=== PATIENT | male | born 1950 | race Two or more races ===

== ENCOUNTER 2024-10-21 10:29 | Emergency (ER) | payer OTHER ==
[~2024-10-21] VITALS: Ht 165.1 cm; Wt 71.9 kg
--- NOTE | 2024-10-21 10:53 | ED.PDOC ---
History of present illness HPI Comments 74 y/o M, with PMHX of HTN, DM, HLD, and HI presents to the ED for CC hyperglycemia. Patient states, that he was at [facility] for a routine follow up appointment when he was relayed to the ED due to an elevated blood sugar reading at 514. Patient's blood sugar on glucometer in triage read at 355. Patient denies any fatigue, weakness, numbness, or N/V/D. No other symptoms or modifying factors at this time. Chief Complaint: Hyperglycemia Time Seen by MD: 10:40 History of present illness: Nurses Notes, Medications, Allergies Allergies: Coded Allergies: NO KNOWN ALLERGIES (Unverified , 10/21/24) Information Source: Patient, Significant Other Mode of Arrival: Ambulatory Timing: Minutes Duration: Since onset Prehospital treatment: Accucheck [place]: None History of: Diabetes, Insulin use Associated signs and symptoms: None Past Medical History PAST MEDICAL HISTORY: DM, High Lipids, HTN, HI Surgical History: Appendectomy, PTCA Family History Family History: Unknown Social History Smoker: Non-Smoker Alcohol: Denies ETOH Use Drugs: Denies Drug Use Lives In: Home Constitutional: denies: chills, diaphoresis, fatigue, fever, malaise, sweats, weakness, others EENTM: denies: blurred vision, double vision, ear bleeding, ear discharge, ear drainage, ear pain, ear ringing, eye pain, eye redness, hearing loss, mouth pain, mouth swelling, nasal discharge, nose bleeding, nose congestion, nose pain, photophobia, tearing, throat pain, throat swelling, voice changes, others Respiratory: denies: cough, hemoptysis, orthopnea, SOB at rest, shortness of breath, SOB with excertion, stridor, wheezing, others Cardiovascular: denies: chest pain, dizzy spells, diaphoresis, Dyspnea on exertion, edema, irregular heart beat, left arm pain, lightheadedness, palpitations, PND, syncope, others Gastrointestinal: denies: abdomen distended, abdominal pain, blood streaked bowels, constipated, diarrhea, dysphagia, difficulty swallowing, hematemesis, melena, nausea, poor appetite, poor fluid intake, rectal bleeding, rectal pain, vomiting, others Genitourinary: denies: burning, dysuria, flank pain, frequency, hematuria, incontinence, penile discharge, penile sore, pain, testicle pain, testicle swelling, urgency, others Neurological: denies: dizziness, fainting, headache, left sided numbness, left sided weakness, numbness, paresthesia, pre-existing deficit, right sided numbness, right sided weakness, seizure, speech problems, tingling, tremors, weakness, others Musculoskeletal: denies: back pain, gout, joint pain, joint swelling, muscle pain, muscle stiffness, neck pain, others Integumetry: denies: bruises, change in color, change in hair/nails, dryness, laceration, lesions, lumps, rash, wounds, others Allergic/Immunocompromised: denies: Difficulty Healing, Frequent Infections, Hives, Itching, others Hematologic/Lymphatic: denies: anemia, blood clots, easy bleeding, easy bruising, swollen glands, others Endocrine: denies: excessive hunger, excessive sweating, excessive thirst, excessive urination, flushing, intolerance to cold, intolerance to heat, unexplained weight gain, unexplained weight loss, others Psychiatric: denies: anxiety, bipolar disorder, depression, hopeless, panic disorder, schizophrenia, sleepless, suicidal, others All Other Systems: Reviewed and Negative Physical Exam General Appearance: No Apparent Distress HEENT: Normal ENT Inspection, Pharynx Normal, TMs Normal Neck: Full Range of Motion, Non-Tender, Normal, Normal Inspection Respiratory: Chest Non-Tender, Lungs Clear, No Accessory Muscle Use, No Respiratory Distress, Normal Breath Sounds Cardiovascular: No Edema, No JVD, No Murmur, No Gallop, Normal Peripheral Pulses, Regular Rate/Rhythm Breast Exam: Deferred Gastrointestinal: No Organomegaly, Non Tender, No Pulsatile Mass, Normal Bowel Sounds, Soft Genitalia: Deferred Pelvic: Deferred Rectal: Deferred Extremities: No calf tenderness, Normal capillary refill, Normal inspection, Normal range of motion, Non-tender, No pedal edema Musculoskeletal : Apperance: Normal Neurologic: Alert, claims analyst II-XII nml as Tested, No Motor Deficits, Normal Affect, Normal Mood, No Sensory Deficits Cerebellar Function: Normal Reflexes: Normal Skin: Dry, Rash, Warm Lymphatic: No Adenopathy Was a procedure done? Was a procedure done?: No Differential Diagnosis (DM) Differential Diagnosis: Hyperglycemia X-Ray, Labs, Meds, VS Vital Signs Date Time Temp Pulse Resp B/P (MAP) Pulse Ox O2 Delivery O2 Flow Rate FiO2 10/21/24 10:35 98.3 102 16 154/48 (83) 100 Lab Test 10/21/24 10:54 10/21/24 10:51 10/21/24 10:39 Range/Units POC Glucose 355 H 355 H 70-106 mg/dl White Blood Count 11.2 H 4.4-10.8 10^3/uL Red Blood Count 4.33 L 4.5-5.90 10^6/uL Hemoglobin 12.5 L 13.5-17.5 g/dL Hematocrit 38.0 L 41.0-53.0 % Mean Corpuscular Volume 87.7 80.0-100.0 fL Mean Corpuscular Hemoglobin 28.8 28.0-32.0 pg Mean Corpuscular Hemoglobin Concent 32.8 32.0-36.0 g/dL Red Cell Distribution Width 15.7 H 11.8-14.3 % Platelet Count 300 140-450 10^3/uL Mean Platelet Volume 6.8 L 6.9-10.8 fL Neutrophils (%) (Auto) 64.4 37.0-80.0 % Lymphocytes (%) (Auto) 19.3 10.0-50.0 % Monocytes (%) (Auto) 5.6 0.0-12.0 % Eosinophils (%) (Auto) 9.8 H 0.0-7.0 % Basophils (%) (Auto) 0.9 0.0-2.0 % Neutrophils # (Auto) 7.2 1.6-8.6 10 ^3/uL Lymphocytes # (Auto) 2.2 0.4-5.4 10 ^3/uL Monocytes # (Auto) 0.6 0-1.3 10 ^3/uL Eosinophils # (Auto) 1.1 H 0-0.8 10 ^3/uL Basophils # (Auto) 0.1 0-0.2 10 ^3/uL Nucleated Red Blood Cells 0.0 % Sodium Level 137 136-145 mmol/L Potassium Level 4.5 3.5-5.1 mmol/L Chloride Level 102 98-107 mmol/L Carbon Dioxide Level 29 20-31 mmol/L Anion Gap 6 5-15 Blood Urea Nitrogen 20 9-23 mg/dL Creatinine 0.82 0.700-1.30 mg/dL Glomerular Filtration Rate Calc 93 >90 mL/min BUN/Creatinine Ratio 24.4 H 10.0-20.0 Serum Glucose 376 H 74-106 mg/dL Calcium Level 9.6 8.7-10.4 mg/dL Current Medications Medications (Trade) Dose Ordered Sig/Dominique Route Start Time Stop Time Status Last Admin Insulin Human Regular (InsuLIN R) 10 units ONCE ONCE SC 10/21/24 10:45 10/21/24 10:46 DC 10/21/24 11:00 The patient's CBC shows a slightly elevated white bolused cell count of 11.2 The rest of the CBC is within normal limits The chemistry panel shows a serum of 376 The patient was given insulin at 10 units subQ The patient was being discharged The patient was to follow up with [facility] The patient will return to the emergency department's the condition worsens. Time of 1ST Reevaluation: 11:20 Reevaluation 1ST: Unchanged Patient Education/Counseling: Diagnosis, Treatment, Prognosis, Need For Follow Up Family Education/Counseling: Diagnosis, Treatment, Prognosis, Need For Follow Up Additional Information - I reviewed the following notes from patient's past medical encounters: NONE - The following tests were ordered, and results were reviewed by me: CBC, BMP - Additional information was gathered from interviewing the following independent Historian: FAMILY - I discussed treatments and results with medical personnel and: FAMILY Departure 1 Departure Time of Disposition: 12:04 Impression: Primary Impression: Hyperglycemia Disposition: 01 HOME / SELF CARE / HOMELESS Condition: Fair Discharged With: Self, Spouse Critical Care Note Critical Care Time?: No Stability Stability form required: No Heart Score Heart Score: Heart Score Response (Comments) Value History N/A 0 EKG N/A 0 Age N/A 0 Risk Factors N/A 0 Troponin N/A 0 Total 0 I personally scribed for LEONARDO YANG MD ([email or web address]) on 10/21/24 at 10:52. Electronically submitted by Ana Jacobsen ([email or web address]). I personally scribed for LEONARDO YANG MD ([email or web address]) on 10/21/24 at 11:08. Electronically submitted by Ana Jacobsen ([email or web address]). LEONARDO YANG MD Oct 21, 2024 10:52
[2024-10-21] MEDS: InsuLIN REG 1unit/0.01ml Soln (100units/ml) SC ONE (11:00)
[2024-10-21 11:13] LABS: Basophils # (auto) 0.1 10 ^3/uL (0-0.2); Basophils % (auto) 0.9 % (0.0-2.0); Eosinophils # (auto) 1.1 10 ^3/uL (0-0.8); Eosinophils % (auto) 9.8 % (0.0-7.0); Hemoglobin 12.5 g/dL (13.5-17.5); Lymphocytes # (auto) 2.2 10 ^3/uL (0.4-5.4); Lymphocytes % (auto) 19.3 % (10.0-50.0); Mean Corpuscular Hemoglobin 28.8 pg (28.0-32.0); Mean Corpuscular Hgb Conc. 32.8 g/dL (32.0-36.0); Mean Corpuscular Volume 87.7 fL (80.0-100.0); Monocytes # (auto) 0.6 10 ^3/uL (0-1.3); Monocytes % (auto) 5.6 % (0.0-12.0); Neutrophils # (auto) 7.2 10 ^3/uL (1.6-8.6); Neutrophils % (auto) 64.4 % (37.0-80.0); Platelet Count (auto) 300 10^3/uL (140-450); Red Blood Cells 4.33 10^6/uL (4.5-5.90); Red Cell Distribution Width 15.7 % (11.8-14.3); White Blood Cell 11.2 10^3/uL (4.4-10.8)
[2024-10-21 11:28] LABS: Chloride 102 mmol/L (98-107); Potassium 4.5 mmol/L (3.5-5.1); Sodium 137 mmol/L (136-145)
[2024-10-21 11:29] LABS: Anion Gap 6 (5-15); Calcium 9.6 mg/dL (8.7-10.4); Carbon Dioxide 29 mmol/L (20-31)
[2024-10-21 11:34] LABS: BUN/Creatinine Ratio 24.4 (10.0-20.0); Blood Urea Nitrogen 20 mg/dL (9-23)
[2024-10-21 11:46] LABS: Glucose 376 mg/dL (74-106)
[2024-10-21 12:20] VITALS: BP 158/65; PULSE 91; RESP 17; TEMP 98.5; O2SAT 100
== END 2024-10-21 12:22 | disposition home or self-care (01) ==
LOC: ER 10:29
DX: E11.65 Type 2 diabetes mellitus with hyperglycemia (principal); E78.5 Hyperlipidemia, unspecified; I10 Essential (primary) hypertension; I25.2 Old myocardial infarction; Z90.49 Acquired absence of other specified parts of digestive tract
CPT/HCPCS: 36415; 80048; 82947; 85025; 99283; J1815; 82962

== ENCOUNTER 2024-12-31 22:29 | Inpatient (IN) | payer OTHER ==
[~2024-12-31] VITALS: Ht 167.6 cm; Wt 74.0 kg
--- NOTE | 2024-12-31 23:35 | ED.PDOC ---
History of Present Illness HPI Comments 74-year-old male who came to ER via EMS for shortness of breath. Per EMS, patient does have history of hypertension and diabetes, has history of pemphigus follaceus. Patient usually bed/recliner-bound. Has been feeling short of breath the past few days, that worsens significantly whenever patient attempts to walk. Patient is saturating 92% on room air on scene Chief Complaint: Shortness of Breath Time Seen by MD: 23:34 Primary Care Provider: TESSIE: DR ALVARADO Reviewed Notes: Buncher Operator Notes Allergies: Coded Allergies: Lisinopril (Verified Allergy, Unknown, 12/31/24) Metformin (Verified Allergy, Unknown, 12/31/24) Information Source: Emergency Med Personnel Mode of Arrival: EMS Severity: Moderate Timing: Days Duration: Intermittent Past Medical History PAST MEDICAL HISTORY: DM, High Lipids, HTN, Kidney Stones, [place] Past Medical History (Other): Pemphigus follaceus Surgical History: Appendectomy, PTCA Family History Family History: Unknown Social History Smoker: Non-Smoker Alcohol: Denies ETOH Use Drugs: Denies Drug Use Lives In: Home Constitutional: denies: chills, diaphoresis, fatigue, fever, malaise, sweats, weakness, others EENTM: denies: blurred vision, double vision, ear bleeding, ear discharge, ear drainage, ear pain, ear ringing, eye pain, eye redness, hearing loss, mouth pain, mouth swelling, nasal discharge, nose bleeding, nose congestion, nose pain, photophobia, tearing, throat pain, throat swelling, voice changes, others Respiratory: reports: shortness of breath, SOB with excertion; denies: cough, hemoptysis, orthopnea, SOB at rest, stridor, wheezing, others Physical Exam General Appearance: No Apparent Distress, Normal HEENT: Normal ENT Inspection, Pharynx Normal, TMs Normal Neck: Full Range of Motion, Non-Tender, Normal, Normal Inspection Respiratory: Chest Non-Tender, Lungs Clear, No Accessory Muscle Use, No Respiratory Distress, Normal Breath Sounds Cardiovascular: No Edema, No JVD, No Murmur, No Gallop, Normal Peripheral Pulses, Regular Rate/Rhythm Breast Exam: Deferred Gastrointestinal: No Organomegaly, Non Tender, No Pulsatile Mass, Normal Bowel Sounds, Soft Genitalia: Deferred Pelvic: Deferred Rectal: Deferred Extremities: No calf tenderness, Normal capillary refill, Normal inspection, Normal range of motion, Non-tender, No pedal edema Musculoskeletal : Apperance: Normal Neurologic: Alert, plastic finisher II-XII nml as Tested, No Motor Deficits, Normal Affect, Normal Mood, No Sensory Deficits Cerebellar Function: Normal Reflexes: Normal Skin: Dry, Normal Color, Warm Lymphatic: No Adenopathy Was a procedure done? Was a procedure done?: No Differential Dx Considerations may include: Anemia, electrolyte imbalance, pneumonia, urinary tract infection, hypoxia X-Ray, Labs, Meds, VS Vital Signs Date Time Temp Pulse Resp B/P (MAP) Pulse Ox O2 Delivery O2 Flow Rate FiO2 01/01/25 01:36 118 18 112/61 01/01/25 01:00 98.3 123 19 107/56 (73) 98.3 12/31/24 23:45 Room Air* 0 21 12/31/24 22:56 98.0 93 16 113/70 (84) 92 98.0 Lab Test 01/01/25 01:26 01/01/25 01:22 01/01/25 00:13 Range/Units Lactic Acid Level Pending 9.8 *H 0.4-2.0 mmol/L Troponin I High Sensitivity Pending 26 </=54 ng/L POC Glucose 157 H 70-106 mg/dl White Blood Count 18.3 H 4.4-10.8 10^3/uL Red Blood Count 4.18 L 4.5-5.90 10^6/uL Hemoglobin 11.4 L 13.5-17.5 g/dL Hematocrit 35.7 L 41.0-53.0 % Mean Corpuscular Volume 85.4 80.0-100.0 fL Mean Corpuscular Hemoglobin 27.3 L 28.0-32.0 pg Mean Corpuscular Hemoglobin Concent 32.0 32.0-36.0 g/dL Red Cell Distribution Width 21.5 H 11.8-14.3 % Platelet Count 327 140-450 10^3/uL Mean Platelet Volume 6.8 L 6.9-10.8 fL Neutrophils (%) (Auto) 88.0 H 37.0-80.0 % Lymphocytes (%) (Auto) 6.7 L 10.0-50.0 % Monocytes (%) (Auto) 4.7 0.0-12.0 % Eosinophils (%) (Auto) 0.1 0.0-7.0 % Basophils (%) (Auto) 0.5 0.0-2.0 % Neutrophils # (Auto) 16.1 H 1.6-8.6 10 ^3/uL Lymphocytes # (Auto) 1.2 0.4-5.4 10 ^3/uL Monocytes # (Auto) 0.9 0-1.3 10 ^3/uL Eosinophils # (Auto) 0 0-0.8 10 ^3/uL Basophils # (Auto) 0.1 0-0.2 10 ^3/uL Nucleated Red Blood Cells 0.3 % Sodium Level 142 136-145 mmol/L Potassium Level 4.4 3.5-5.1 mmol/L Chloride Level 111 H 98-107 mmol/L Carbon Dioxide Level 13 L 20-31 mmol/L Anion Gap 18 H 5-15 Blood Urea Nitrogen 23 9-23 mg/dL Creatinine 1.13 0.700-1.30 mg/dL Glomerular Filtration Rate Calc 69 >90 mL/min BUN/Creatinine Ratio 20.4 H 10.0-20.0 Serum Glucose 184 H 74-106 mg/dL Calcium Level 7.4 L 8.7-10.4 mg/dL Total Bilirubin 1.1 H 0.2-1.0 mg/dL Aspartate Amino Transferase (AST) 27 13-40 U/L Alanine Aminotransferase (ALT) 20 7-40 U/L Alkaline Phosphatase 109 46-116 U/L Total Protein 4.5 L 5.7-8.2 g/dL Albumin 2.0 L 3.2-4.8 g/dL Current Medications Medications (Trade) Dose Ordered Sig/Dominique Route Start Time Stop Time Status Last Admin Sodium Chloride 1,000 ml @ 1,000 mls/hr Q1H ONCE IV 01/01/25 01:00 01/01/25 01:59 01/01/25 01:25 Lidocaine HCl (Xylocaine 2% Viscous) 10 ml ONCE ONCE MT 01/01/25 01:00 01/01/25 01:01 DC 01/01/25 01:04 Morphine Sulfate 4 mg ONCE ONCE IV 01/01/25 01:30 01/01/25 01:31 DC 01/01/25 01:36 Ondansetron HCl (Zofran) 4 mg ONCE ONCE IV 01/01/25 01:30 01/01/25 01:31 DC 01/01/25 01:35 CHEST RADIOGRAPH Indication: SOB Technique: Single frontal view of the chest was obtained Comparison: None Findings/ IMPRESSION: Trace left-sided pleural effusion and/or atelectasis. No focal consolidation or pneumothorax. Time of 1ST Reevaluation: 23:20 Reevaluation 1ST: Unchanged Patient Education/Counseling: Diagnosis, Treatment Family Education/Counseling: No Family Present Sepsis Sepsis Reasesment Focused Exam Sepsis focused exam: focus exam completed (In the initial resuscitation at least 30 mL/kg of IV crystalloid fluid was NOT given within the first 3 hr due to concerns of fluid overload), time: (0130) Departure 1 Departure Time of Disposition: 01:47 Impression: Primary Impression: Pemphigus foliaceous Additional Impressions: Dehydration Cellulitis Disposition: [address] [place] [address] Condition: Guarded Discharged With: Self Comments 74-year-old Male with Pemphigus Exacerbation and Weakness Chief Complaint: Generalized weakness, palpitations, and confusion History of Present Illness: 74-year-old male with known history of pemphigus presented via ambulance from home with complaints of generalized weakness, palpitations, and confusion. Family members accompanied the patient and provided history. The patient has been experiencing active pemphigus symptoms with skin sloughing and weeping lesions, suggesting disease exacerbation. These symptoms have likely contributed to fluid losses and current clinical presentation. Review of Systems: Constitutional: Generalized weakness, confusion Cardiovascular: Palpitations Skin: Active pemphigus lesions with sloughing and weeping Other systems: Unable to assess due to patient's condition Physical Exam: General: Patient appears mildly poorly perfused Cardiovascular: Borderline tachycardia Skin: Multiple areas of skin showing active pemphigus lesions with superficial sloughing and weeping Lab Results: Lactic acid: 9.8 (Elevated) WBC: 18, 000 (Elevated) BMI: 23 INR: 1.13 (Normal) Imaging and Other Relevant Results: No imaging studies documented Medical Decision Making: Summary Statement: 74-year-old male with known pemphigus presenting with signs of systemic illness including confusion, weakness, and elevated inflammatory markers, complicated by likely superimposed cellulitis and dehydration. Problem List: 1. Pemphigus exacerbation 2. Suspected cellulitis 3. Dehydration 4. Elevated lactic acid 5. Leukocytosis Differential Diagnosis: 1. Sepsis secondary to skin infection 2. Severe dehydration from fluid losses 3. Pemphigus flare 4. Medication-related adverse effects 5. Other systemic infection ED Course: Patient received IV fluid resuscitation and was started on IV vancomycin for possible cellulitis. Close monitoring of vital signs and clinical status was maintained throughout ED stay. Assessment and Plan: 1. Pemphigus with acute exacerbation: - Admit to hospital for close monitoring and management - Continue current pemphigus medications - Dermatology consultation 2. Suspected Cellulitis: - Continue IV vancomycin - Monitor inflammatory markers - Daily skin examination 3. Dehydration with elevated lactic acid: - Aggressive IV fluid resuscitation - Serial lactic acid monitoring - Strict I/O monitoring Disposition: Admit to medical floor for continued care and monitoring Billing Information: ICD-10: L10.9 - Pemphigus, unspecified ICD-10: L03.90 - Cellulitis, unspecified ICD-10: E86.0 - Dehydration ICD-10: R55 - Syncope and collapse Critical Care Note Critical Care Time?: Yes (35 min-critical care time only) Critical care comment: Total critical care time: Approximately 36 minutes Due to a high probability of clinically significant, life threatening deterioration, the patient required my highest level of preparedness to intervene emergently and I personally spent this critical care time directly and personally managing the patient. This critical care time included obtaining a history; examining the patient; pulse oximetry; ordering and review of studies; arranging urgent treatment with development of a management plan; evaluation of patient's response to treatment; frequent reassessment; and, discussions with other providers. This critical care time was performed to assess and manage the high probability of imminent, life-threatening deterioration that could result in multi-organ failure. It was exclusive of separately billable procedures and treating other patients. Stability Stability form required: No Heart Score Heart Score: Heart Score Response (Comments) Value History N/A 0 EKG N/A 0 Age N/A 0 Risk Factors N/A 0 Troponin N/A 0 Total 0 I personally scribed for KOMAL AVILEZ MD ([email or web address]) on 12/31/24 at 23:35. Electronically submitted by Tristan Rosas ([email or web address]). I personally scribed for KOMAL AVILEZ MD ([email or web address]) on 01/01/25 at 00:20. Electronically submitted by Tristan Rosas ([email or web address]). KOMAL AVILEZ MD Dec 31, 2024 23:35
--- NOTE | 2025-01-01 00:03 | DVH ---
CHEST RADIOGRAPH Indication: SOB Technique: Single frontal view of the chest was obtained Comparison: None Findings/ IMPRESSION: Trace left-sided pleural effusion and/or atelectasis. No focal consolidation or pneumothorax.
[2025-01-01 00:40] LABS: Basophils # (auto) 0.1 10 ^3/uL (0-0.2); Basophils % (auto) 0.5 % (0.0-2.0); Eosinophils # (auto) 0 10 ^3/uL (0-0.8); Eosinophils % (auto) 0.1 % (0.0-7.0); Hematocrit 35.7 % (41.0-53.0); Hemoglobin 11.4 g/dL (13.5-17.5); Lymphocytes # (auto) 1.2 10 ^3/uL (0.4-5.4); Lymphocytes % (auto) 6.7 % (10.0-50.0); Mean Corpuscular Hemoglobin 27.3 pg (28.0-32.0); Mean Corpuscular Volume 85.4 fL (80.0-100.0); Monocytes # (auto) 0.9 10 ^3/uL (0-1.3); Monocytes % (auto) 4.7 % (0.0-12.0); Neutrophils # (auto) 16.1 10 ^3/uL (1.6-8.6); Nucleated Red Blood Cells % 0.3 %; Platelet Count (auto) 327 10^3/uL (140-450); Red Blood Cells 4.18 10^6/uL (4.5-5.90); Red Cell Distribution Width 21.5 % (11.8-14.3); White Blood Cell 18.3 10^3/uL (4.4-10.8)
[2025-01-01 00:52] LABS: Alanine Aminotransferase 20 U/L (7-40); Alkaline Phosphatase 109 U/L (46-116); Anion Gap 18 (5-15); Aspartate Aminotransferase 27 U/L (13-40); BUN/Creatinine Ratio 20.4 (10.0-20.0); Bilirubin, Total 1.1 mg/dL (0.2-1.0); Potassium 4.4 mmol/L (3.5-5.1); Sodium 142 mmol/L (136-145)
[2025-01-01 00:53] LABS: Blood Urea Nitrogen 23 mg/dL (9-23); Calcium 7.4 mg/dL (8.7-10.4); Carbon Dioxide 13 mmol/L (20-31); Chloride 111 mmol/L (98-107); Glucose 184 mg/dL (74-106); Total Protein 4.5 g/dL (5.7-8.2)
[2025-01-01] MEDS: LIDOCAINE VISCOUS 2% 15ML UD MT ONE (01:04)
[2025-01-01] MEDS: SODIUM CHLORIDE 0.9% 1,000 ML IV ONE ×2 (01:25→02:48)
[2025-01-01 01:33] LABS: Lactic Acid w/Reflex 9.8 mmol/L (0.4-2.0)
[2025-01-01] MEDS: ONDANSETRON HCL 4 MG/2 ML VIAL IV ONE (01:35)
[2025-01-01] MEDS: MORPHINE SULFATE 4 MG/ML SYR/VIAL IV ONE (01:36)
[2025-01-01] MEDS: SODIUM CHLORIDE 0.9% 2,050 ML IV ONE (01:49)
[2025-01-01] MEDS: PIPERACILLIN-TAZOB 3.375GM 100 ML IV ONE (01:57)
[2025-01-01] MEDS: VANCOMYCIN 1GM/200ML PM 200 ML IV ONE (03:08)
[2025-01-01 03:15] LABS: COVID19 ANTIGEN SOFIA FIA NEGATIVE (NEGATIVE); Rapid Influenza A Negative (Negative); Rapid Influenza B Negative (Negative)
[2025-01-01] MEDS ORDERED: DOCUSATE SOD 100 MG CAP PO PRN (03:30)
[2025-01-01] MEDS ORDERED: ACETAMINOPHEN 325 MG TAB PO PRN (03:30)
[2025-01-01] MEDS ORDERED: ONDANSETRON HCL 4 MG/2 ML VIAL IV PRN (03:30)
--- NOTE | 2025-01-01 03:36 | DVHHPRES ---
History of Present Illness Resident Creating Document: LIZ ALEX History of Present Illness Giorgi Allred is a 74-year-old male patient who presents to the ED brought by EMS due to altered mental status which started last Friday (12/26/2024) and sudden onset of dyspnea in functional class IV which started the day of his admission (01/01/2025). Due to clinical status, could not obtain review of systems per history from patient. Obtain relevant information from EMR and who is at bedside. 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 Denies any other associated symptoms. 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 Surgical history: Appendicectomy. PCI status post stent placement over 10 years ago Family history: Denies Social history: Lives in [place] with (she is the next of kin). Denies current tobacco, alcohol and other drug abuse Allergies: Lisinopril, metformin and Jardiance Home medication: Per EMS he is only on Pradaxa, Lipitor, famotidine and metoprolol. Per external med rec he is also on tacrolimus, mycophenolate, ezetimibe, prednisone. It is unclear if he is taking this medication. Patient seen and examined at bedside. Currently only oriented for self (does not know event, location and timeframe). 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 Have explained importance of monitoring vital signs. Past Medical History Per HPI Past Surgical History Per HPI Family History Per HPI Past Social History Per HPI Review of Systems Review of Systems Per HPI Allergies: Coded Allergies: Lisinopril (Verified Allergy, Unknown, 12/31/24) Metformin (Verified Allergy, Unknown, 12/31/24) Medications Current Medications Medications Dose Ordered Sig/Dominique Route Start Time Stop Time Status Last Admin Dose Admin Docusate Sodium 100 mg BIDPRN PRN PO 01/01/25 03:30 UNV Acetaminophen 650 mg Q6HP PRN PO 01/01/25 03:30 UNV Ondansetron HCl 4 mg Q4HP PRN IV 01/01/25 03:30 UNV Morphine Sulfate 2 mg Q4HPRN PRN IV 01/01/25 03:30 UNV Enoxaparin Sodium 40 mg DAILY SC 01/01/25 10:00 UNV Exam Vital Signs Vital Signs Date Time Temp Pulse Resp B/P (MAP) Pulse Ox O2 Delivery O2 Flow Rate FiO2 01/01/25 01:36 118 18 112/61 01/01/25 01:00 98.3 98.3 12/31/24 23:45 Room Air* 0 21 12/31/24 22:56 92 Exam Patient lying in bed, in no acute distress General: [place], afebrile, mucosae are dry Cardiovascular: Normal S1 and S2, tachycardic. No murmurs, gallops or rubs Respiratory: Normal ventilation mechanics. Clear lung sounds on auscultation Abdomen: Soft, nontender, no organomegaly, normal bowel sounds MSK/skin: Mobilizes 4 limbs. Generalized blisters, erosions and crust throughout body, purulent secretion and erythema underneath crust. Lower limb extremities presents crusty lesions with no obvious drainage. Neurological: Oriented in 1 spheres (only person). No motor no sensitive deficits. Pupils are isocoric and reactive Labs/Xrays Labs Test 01/01/25 01:50 01/01/25 01:26 01/01/25 01:22 01/01/25 00:13 Range/Units Influenza Type A Antigen Negative Negative Influenza Type B Antigen Negative Negative SARS-CoV-2 Antigen (Rapid) Negative NEGATIVE Lactic Acid Level 9.6 *H 0.4-2.0 mmol/L Troponin I High Sensitivity 26 </=54 ng/L POC Glucose 157 H 70-106 mg/dl White Blood Count 18.3 H 4.4-10.8 10^3/uL Red Blood Count 4.18 L 4.5-5.90 10^6/uL Hemoglobin 11.4 L 13.5-17.5 g/dL Hematocrit 35.7 L 41.0-53.0 % Mean Corpuscular Volume 85.4 80.0-100.0 fL Mean Corpuscular Hemoglobin 27.3 L 28.0-32.0 pg Mean Corpuscular Hemoglobin Concent 32.0 32.0-36.0 g/dL Red Cell Distribution Width 21.5 H 11.8-14.3 % Platelet Count 327 140-450 10^3/uL Mean Platelet Volume 6.8 L 6.9-10.8 fL Neutrophils (%) (Auto) 88.0 H 37.0-80.0 % Lymphocytes (%) (Auto) 6.7 L 10.0-50.0 % Monocytes (%) (Auto) 4.7 0.0-12.0 % Eosinophils (%) (Auto) 0.1 0.0-7.0 % Basophils (%) (Auto) 0.5 0.0-2.0 % Neutrophils # (Auto) 16.1 H 1.6-8.6 10 ^3/uL Lymphocytes # (Auto) 1.2 0.4-5.4 10 ^3/uL Monocytes # (Auto) 0.9 0-1.3 10 ^3/uL Eosinophils # (Auto) 0 0-0.8 10 ^3/uL Basophils # (Auto) 0.1 0-0.2 10 ^3/uL Nucleated Red Blood Cells 0.3 % Sodium Level 142 136-145 mmol/L Potassium Level 4.4 3.5-5.1 mmol/L Chloride Level 111 H 98-107 mmol/L Carbon Dioxide Level 13 L 20-31 mmol/L Anion Gap 18 H 5-15 Blood Urea Nitrogen 23 9-23 mg/dL Creatinine 1.13 0.700-1.30 mg/dL Glomerular Filtration Rate Calc 69 >90 mL/min BUN/Creatinine Ratio 20.4 H 10.0-20.0 Serum Glucose 184 H 74-106 mg/dL Calcium Level 7.4 L 8.7-10.4 mg/dL Total Bilirubin 1.1 H 0.2-1.0 mg/dL Aspartate Amino Transferase (AST) 27 13-40 U/L Alanine Aminotransferase (ALT) 20 7-40 U/L Alkaline Phosphatase 109 46-116 U/L Total Protein 4.5 L 5.7-8.2 g/dL Albumin 2.0 L 3.2-4.8 g/dL Assessment/Plan Assessment/Plan Assessment: Metabolic encephalopathy likely secondary to sepsis Sepsis due to exacerbated pemphigus foliaceous Acute respiratory failure secondary to bilateral pleural effusion Rule out CVA Rule out PE Hypertension Dyslipidemia Diabetes Coronary artery disease status post PCI with stent placement Chronic microcytic anemia Pemphigus foliaceous - currently status bed-bound Noncompliance (he is refusing cardiac monitoring and pulse oximetry) Plan: Patient currently septic, ordered 30 milliliters/kg of normal saline, under empiric IV antibiotic (vancomycin and Zosyn), ordered oxygen therapy but patient is refusing at this time and also refusing pulse oximetry. Ordered oliveira cultures (blood, urine, sputum, wound). Influenza and COVID swab negative Ordered head CT and chest CT with contrast to rule out CVA and PE respectively Ordered wound consult It is unclear whether patient is on mycophenolate, tacrolimus and prednisone. We will start present patient on methylprednisolone at this time to avoid suprarenal insufficiency and also to control exacerbation of pemphigus foliaceous Goals of care discussed with patient but he is not oriented, discussed with who was at bedside (Jeane) over 18 minutes: Full code status by Plan discussed with Dr. Duckworth, patient and nurses: Patient currently on IV fluids, empiric IV antibiotic, oxygen therapy. Ordered head CT and chest CT with contrast to rule out CVA and PE respectively. Patient is on IV steroids to avoid suprarenal insufficiency and for exacerbation of pemphigus foliaceous. Patient has poor prognosis Critical care time spent including discussion with nursing and family: 62 minutes Patient is unstable for transfer to [place] Plan discussed with: Patient, Spouse, Other (Nurses) My Orders Orders - LIZ ALEX RESIDENT Procedure Category Date Status Time Admit ADMIT 01/01/25 Transmitted 03:30 Code Status CODE 01/01/25 Transmitted 03:30 Vital Signs [facility] 01/01/25 In Process 03:30 Review Orders With [facility] 01/01/25 In Process Adm. 03:30 Consistent DIET 01/01/25 Transmitted Carb(Ccho)Diabetes Breakfast Docusate Sodium PHA 01/01/25 Logged Capsule (Colace 03:30 Acetaminophen Tablet PHA 01/01/25 Logged (Tylenol Tablet) 03:30 Notify Of Changes [facility] 01/01/25 In Process From Base 03:30 Advance Directive [facility] 01/01/25 In Process 03:30 Echo 2d Mode Cardiac US 01/01/25 Logged DOP 03:30 Patient Condition ORDERS 01/01/25 Transmitted 03:30 Allergies [facility] 01/01/25 In Process 03:30 Ondansetron Hcl PHA 01/01/25 Transmitted (Zofran) 03:30 Morphine Sulfate PHA 01/01/25 Logged Injection 03:30 Enoxaparin Sodium PHA 01/01/25 Logged (Lovenox) 10:00 Oxygen By Nasal RT 01/01/25 Transmitted Cannula 03:30 Stat Ekg For Chest [facility] 01/01/25 In Process Pain 03:30 Notify Of Changes [facility] 01/01/25 In Process From Base 03:30 Informatics Nurse For [facility] 01/01/25 In Process 24 Hours 03:30 Emergency Dysrhythmia [facility] 01/01/25 In Process Protocol 03:30 Rhythm Strips Once [facility] 01/01/25 In Process Every Shift 03:30 Vitamin D, 25-Hydroxy LAB 01/01/25 Logged 03:30 Vitamin B12 LAB 01/01/25 Logged 03:30 Urinalysis LAB 01/01/25 Logged 03:30 Thyroid Stimulating LAB 01/01/25 Logged Hormone 03:30 PTPTT LAB 01/01/25 Logged 03:30 Phosphorus LAB 01/01/25 Logged 03:30 Magnesium LAB 01/01/25 Logged 03:30 Lipid Panel LAB 01/01/25 Logged 03:30 Lactic Acid W/ Reflex LAB 01/01/25 Logged Order 03:30 Hemoglobin A1c LAB 01/01/25 Logged 03:30 Drug Screen LAB 01/01/25 Logged 03:30 Comprehensive LAB 01/01/25 Logged Metabolic Panel 03:30 Complete Blood Count LAB 01/01/25 Logged 03:30 Urine Bacterial ANKIT 01/01/25 Logged Culture 03:30 Respiratory Culture ANKIT 01/01/25 Logged W/ Gs 03:30 Sputum Induction RT 01/01/25 Logged 03:30 Date of Service: Jan 01, 2025 Billing Provider: LIZBETH DUCKWORTH MD Common Visit Codes: [id number] INP/OBS CARE (HIGH) LIZ ALEX RESIDENT Jan 01, 2025 03:36
[2025-01-01] MEDS: IOHEXOL 350 MG/ML 100ML IJ ONE (04:00)
[2025-01-01] MEDS ORDERED: DEXTROSE (50%) 50ML SYRG IV PRN (04:15)
[2025-01-01] MEDS ORDERED: VANCOMYCIN PER PHARMACY 0 MG IV SCH (04:15)
[2025-01-01] MEDS: SODIUM CHLORIDE 0.9% 1,000 ML IV SCH (04:21)
[2025-01-01] MEDS: PANTOPRAZOLE 40 MG/10 ML VIAL INJ IV ONE (04:23)
[2025-01-01 04:32] LABS: INR 1.72 (0.9-1.15); Partial Thromboplastin Time 51.3 SEC (24.5-34.5); Prothrombin Time 17.3 sec (9.3-11.8)
[2025-01-01 04:35] LABS: Alanine Aminotransferase 15 U/L (7-40); Alkaline Phosphatase 85 U/L (46-116); Anion Gap 16 (5-15); BUN/Creatinine Ratio 20.6 (10.0-20.0); Bilirubin, Total 0.9 mg/dL (0.2-1.0); Blood Urea Nitrogen 21 mg/dL (9-23); Cholesterol < 50.0 mg/dL (< 200); LDL Cholesterol 13 mg/dL (< 100); Magnesium 1.8 mg/dL (1.6-2.6); Phosphorus 3.7 mg/dL (2.4-5.1); Potassium 3.9 mmol/L (3.5-5.1); Triglycerides 89 mg/dL (< 150)
[2025-01-01 04:44] LABS: INR 1.49 (0.9-1.15); Partial Thromboplastin Time 42.1 SEC (24.5-34.5); Prothrombin Time 15.2 sec (9.3-11.8)
[2025-01-01 04:55] LABS: Albumin 1.6 g/dL (3.2-4.8); Aspartate Aminotransferase 9 U/L (13-40); Calcium 6.7 mg/dL (8.7-10.4); Carbon Dioxide 16 mmol/L (20-31); Chloride 113 mmol/L (98-107); Glucose 176 mg/dL (74-106); HDL Cholesterol 17 mg/dL (40-59); Sodium 145 mmol/L (136-145); Total Protein 3.5 g/dL (5.7-8.2)
[2025-01-01] MEDS: methylPREDNISolone SOD SUCC 40 MG/ML VL IV ONE (05:06)
[2025-01-01] MEDS: InsuLIN REG 1unit/0.01ml Soln (100units/ml) SC SCH (06:15)
[2025-01-01] MEDS: ACCU-CHEK COMFORT CURVE STRIP VI SCH (06:15)
--- NOTE | 2025-01-01 07:08 | DVH ---
CLINICAL INFORMATION: Pulmonary embolism. No other clinical information provided. TECHNIQUE: Axial CTA images of the chest were obtained after the uneventful administration of 100 mL of Omnipaque 350 IV contrast. Coronal and sagittal reformatted images and MIP images were obtained, reviewed, and stored. One or more of the following dose reduction techniques were used: Automated exp osure control. Adjustment of mA and/or kV according to patient size. CTDIvol = 16, 11.84, 0.07, 0.07 mGy DLP = 638.67 mGy-cm COMPARISON: Chest radiograph dated 12/31/2024. FINDINGS: Pulmonary arteries: Limited evaluation for pulmonary embolism due to respiratory motion artifact subo ptimal contrast opacification of the pulmonary arteries. No evidence of central or lobar pulmonary em bolism. Can not exclude segmental or subsegmental pulmonary emboli Aorta: No aneurysm or dissection. Moderate atherosclerotic calcification Cardiac: Heart size is within normal limits. Marked coronary artery calcification. Mediastinum/lonnie: No mass or adenopathy. Lungs: Small to moderate bilateral pleural effusions with overlying compressive atelectasis. No focal consolidation visualized. Limited evaluation due to respiratory motion artifact. No pneumothorax. Chest wall: Diffuse anasarca. Upper abdomen: Small calcified gallstones in the gallbladder. Moderate fatty changes of the pancreas. Bones: No fracture or suspicious intraosseous lesions. IMPRESSION: 1. Limited evaluation for pulmonary embolism for the reasons described above. No evidence of central or lobar pulmonary embolism. Can not exclude segmental or subsegmental pulmonary emboli. 2. Small to moderate bilateral pleural effusions with overlying compressive atelectasis. 3. Cholelithiasis. 4. Anasarca. 5. Additional findings as described above.
--- NOTE | 2025-01-01 07:34 | DVH ---
CLINICAL INFORMATION: Acute loss of consciousness. TECHNIQUE: Axial imaging was obtained through the brain without contrast. Coronal and sagittal reform atted images were obtained, reviewed, and stored. Images were reviewed in brain and bone windows. Al l CT scans at this medical facility are performed using dose modulation techniques as appropriate to a performed exam including the following: Automated exposure control was utilized; adjustment of the MA and/or KV according to patient size; and use of iterative reconstruction technique. CTDIvol = 59.4 9 mGy DLP = 953.58 mGy-cm COMPARISON: None FINDINGS: There is no acute intracranial hemorrhage. No mass effect or midline shift. The ventricles and sulci are within normal limits in size for age. Basal cisterns are patent. The calvarium is unre markable. Mild mucosal thickening of the paranasal sinuses. Mastoid air cells are clear. IMPRESSION: No CT evidence of acute intracranial abnormality.
[2025-01-01 08:05] VITALS: RESP 18
[2025-01-01] MEDS: ENOXAPARIN SOD 40 MG/0.4 ML SYRINGE SC SCH (10:00)
[2025-01-01] MEDS: methylPREDNISolone SOD SUCC 40 MG/ML VL IV SCH (10:05)
[2025-01-01] MEDS: MORPHINE SULFATE INJ 2 MG/ml SYRG IV PRN (11:33)
[2025-01-01] MEDS ORDERED: POLYSOL2 EACHEYE (11:46)
[2025-01-01] MEDS ORDERED: METO-158 PO (11:46)
[2025-01-01] MEDS ORDERED: NITR0.4S29 SL (11:46)
[2025-01-01] MEDS ORDERED: EZET10TA22 PO (11:46)
[2025-01-01] MEDS ORDERED: MYCO500T PO (11:46)
[2025-01-01] MEDS ORDERED: MOXI0.5D9 OP (11:46)
[2025-01-01] MEDS ORDERED: ATOR-47 PO (11:46)
[2025-01-01] MEDS ORDERED: DABI150C5 PO (11:46)
[2025-01-01] MEDS ORDERED: FAMO20TA10 PO (11:47)
[2025-01-01] MEDS ORDERED: TAMS-35 PO (11:49)
[2025-01-01] MEDS ORDERED: FERR65TA12 PO (11:49)
[2025-01-01] MEDS ORDERED: LACTCAP35 PO (11:50)
[2025-01-01 12:00] VITALS: PULSE 112; RESP 20; O2SAT 97
[2025-01-01] MEDS: PIPERACILLIN-TAZOB 3.375GM 100 ML IV SCH (13:58)
--- NOTE | 2025-01-01 14:50 | DVHPN2 ---
Reviewed: Care Plan, H&P, Labs, Medications, Previous Orders, Radiology Changes from previous H/P or p: No Changes Objective Vitals Vital Signs Date Time Temp Pulse Resp B/P (MAP) Pulse Ox O2 Delivery O2 Flow Rate FiO2 01/01/25 12:00 112 20 97 Room Air* 0 21 01/01/25 11:33 121/83 01/01/25 08:00 96.7 96.7 Intake/Output Intake and Output 01/01/25 07:00 Intake Total 2500 ml Balance 2500 ml Intake IV Total 2500 ml Medications Current Medications Medications Dose Ordered Sig/Dominique Route Start Time Stop Time Status Last Admin Dose Admin Docusate Sodium 100 mg BIDPRN PRN PO 01/01/25 03:30 Acetaminophen 650 mg Q6HP PRN PO 01/01/25 03:30 Ondansetron HCl 4 mg Q4HP PRN IV 01/01/25 03:30 Morphine Sulfate 2 mg Q4HPRN PRN IV 01/01/25 03:30 01/01/25 11:33 2 MG Enoxaparin Sodium 40 mg DAILY SC 01/01/25 10:00 Piperacillin Sod/ Tazobactam Sod 100 ml @ 25 mls/hr Q8HR IV 01/01/25 14:00 01/01/25 13:58 25 MLS/HR Vancomycin HCl 0 ml @ 0 mls/hr UD IV 01/01/25 04:15 UNV Sodium Chloride 1,000 ml @ 100 mls/hr Q10H IV 01/01/25 04:15 01/01/25 14:23 100 MLS/HR Pantoprazole Sodium 40 mg DAILY IV 01/02/25 10:00 Diagnostic Test (Pha) 1 strip ACHS 01/01/25 07:00 01/01/25 11:30 1 STRIP Insulin Human Regular ACHS SC 01/01/25 07:00 Dextrose 50 ml UD PRN IV 01/01/25 04:15 Methylprednisolone Sodium Succinate 40 mg BID IV 01/01/25 10:00 01/01/25 10:05 40 MG Vancomycin HCl 200 ml @ 200 mls/hr Q12H IV 01/01/25 15:00 UNV Laboratory Results Laboratory Tests 01/01/25 00:13 01/01/25 03:32 Chemistry Test 01/01/25 00:13 01/01/25 03:32 Albumin 2.0 g/dL (3.2-4.8) L 1.6 g/dL (3.2-4.8) L Calcium Level 7.4 mg/dL (8.7-10.4) L 6.7 mg/dL (8.7-10.4) L Total Protein 4.5 g/dL (5.7-8.2) L 3.5 g/dL (5.7-8.2) L Magnesium Level 1.8 mg/dL (1.6-2.6) Phosphorus Level 3.7 mg/dL (2.4-5.1) Coagulation Test 01/01/25 03:32 Prothrombin Time 15.2 sec (9.3-11.8) H Prothrombin Time INR 1.49 (0.9-1.15) H Activated Partial Thromboplast Time 42.1 SEC (24.5-34.5) H D-Dimer, Quantitative 1.57 mg/L FEU (0.0-0.49) H Lipid panel Test 01/01/25 03:32 Cholesterol Level < 50.0 mg/dL (< 200) HDL Cholesterol 17 mg/dL (40-59) L Triglycerides Level 89 mg/dL (< 150) LFT Test 01/01/25 00:13 01/01/25 03:32 Alanine Aminotransferase (ALT) 20 U/L (7-40) 15 U/L (7-40) Alkaline Phosphatase 109 U/L (46-116) 85 U/L (46-116) Aspartate Amino Transferase (AST) 27 U/L (13-40) 9 U/L (13-40) L Total Bilirubin 1.1 mg/dL (0.2-1.0) H 0.9 mg/dL (0.2-1.0) HgA1c, TSH Test 01/01/25 00:13 01/01/25 03:32 Hemoglobin A1c 6.3 % A1C (<5.7) H Thyroid Stimulating Hormone (TSH) 0.90 uIU/mL (0.55-4.78) Microbiology Microbiology Date/Time Source Procedure Growth Status 01/01/25 01:16 Blood Blood Culture - Preliminary Resulted Labs and/or images reviewed: Labs reviewed by me, Image(s) reviewed by me Assessment/Plan Assessment/Plan Metabolic encephalopathy likely secondary to sepsis Sepsis due to exacerbated pemphigus foliaceous: Vancomycin Zosyn: Blood cultures urine culture Acute respiratory failure secondary to bilateral pleural effusion Rule out CVA Rule out PE Hypertension Dyslipidemia Diabetes Coronary artery disease status post PCI with stent placement Chronic microcytic anemia Pemphigus foliaceous - currently status bed-bound Noncompliance (he is refusing cardiac monitoring and pulse oximetry) Prognosis Very poor Advanced care planning time 20 minutes Time spent 70 minutes Patient is full code Not stable for transfer to [facility] Plan discussed with: Patient Date of Service: Jan 01, 2025 Billing Provider: ROCK ALFONSO MD Common Visit Codes: [id number] CARE 30-74 MIN ROCK ALFONSO MD Jan 01, 2025 14:50
[2025-01-01] MEDS: VANCOMYCIN 750MG KIT 100 ML IV SCH (16:37)
[2025-01-01 17:30] VITALS: BP 131/50; PULSE 76; RESP 18; TEMP 98
--- NOTE | 2025-01-01 19:47 | DVHSR ---
APPROVED REPORT EXAM: LIMITED Two-dimensional echocardiogram. Blood Pressure: 106/29 mmHg RISK FACTORS Height: 5' 8", Weight: 143 DIMENSIONS LVDd4.6 (3.8-5.7cm)LA (2D) (1.9-4.0cm)Aortic Root (2.0-3.7cm) LVDs3.6 (2.5-4.0cm)LA (MM) (1.9-4.0cm)Aortic Cusp Exc (1.5-2.0cm) EF (%) 45.0 (55-70%)Rt. Atrium (1.9-4.0cm)Asc. Aorta cm Mitral Valve MitralMitral Stenosis E/A ratio0.02D MVAcm2 Other Information Quality : Technically LimitedRhythm : Atrial Fibrillation Technically limited study due to body habitus, pt skin falling off all over body due to autoimmune, very painful to touch and electrodes unable to be attached. Bleeding sores in echo windows, very limi aubrie. Conclusion UNDERLY ING TACHYCARDIA MODERATE DEGREE LVH AND MODERATE DEGREE LV DIASTOLIC DYSFUNCTION GLOBAL LV HYPOKINESIS LV EF IS ABOUT 25% AND IS MODERATELY REDUCED DYSKINESIS OF IVS MODERATELY DILATED RV LIMITED STUDY GROSSLY NORMAL VALVES NO EFFUSION SUGGESTION; REPEAT STUDY WHEN HEART RATE IS BETWEEN 50 TO 80 PER MINUTE FOR PROPER LV FUNCTION AND VALVES EVALUAT ION
[2025-01-01 21:00] VITALS: BP 123/67; PULSE 77; RESP 16; TEMP 93.3; O2SAT 93
[2025-01-02] VITALS (10 sets, daily range): BP systolic 102–143; BP diastolic 35–57; PULSE 59–111; RESP 16–21; TEMP 90.8–96.4; O2SAT 93–100
[2025-01-02] MEDS: SODIUM CHLORIDE 0.9% 1,000 ML IV SCH
[2025-01-02 00:14] LABS: Base Excess -8.2 mmol/L (-2.0-3.0)
[2025-01-02] MEDS: SODIUM CHLORIDE 0.9% 1,000 ML IV ONE (00:15)
--- NOTE | 2025-01-02 01:01 | RESUS ---
CODE ASSIST ASSESSSMENT Initial Information Code Assist Date: Jan 01, 2025 Code Assist Time: 00:45 Location of Arrest: [facility] Room # 236 Provider Name Oralia Time Notified: 00:45 Time PMD returned call: 00:45 Crash Cart Opened and Supplies: No Situation Staff concerned/worried, speci: Other (Rectal temp 90.8) Situation comment: Primary RN called rapid response d/t pt's rectal temp 90.8 Background Background: Pt admitted on 01/01/25 for sepsis. Pt observed to have sloughing of skin over 100% of body d/t autoimmune disease per primary RN. Assessment Temperature (Fahrenheit): 90.8 Blood Pressure Systolic: 148 Blood Pressure Diastolic: 99 Respiratory Rate: 17 O2 Sat by Pulse Oximetry: 99 Bedside Blood Glucose: 172 Recommendations/Interventions Procedures: EKG Other Interventions Bolus of 1L NS and then to be followed by 250mL/hr of NS with use of fluid warmer. Low setting of warming blanket. Outcome Outcome: Other (Monitoring of temp with warming measures) Team Members Team Members MD Oralia - hospitalist; Cat Escobedo, RN - ICU Charge; Monica Estrada RN - supervisor costuming; Robert Carrasco RN - Primary RN; Mima Banks RN - East Charge; Cortez Monsivais RN - West Charge; Joao Banks RN; VIKTORIYA Salazar Ashley Jan 02, 2025 01:01
--- NOTE | 2025-01-02 10:41 | DVHPN2 ---
Reviewed: Care Plan, H&P, Labs, Medications, Previous Orders, Radiology Changes from previous H/P or p: No Changes Objective Vitals Vital Signs Date Time Temp Pulse Resp B/P (MAP) Pulse Ox O2 Delivery O2 Flow Rate FiO2 01/02/25 09:00 92.7 108 18 143/35 (71) 100 92.7 01/01/25 12:00 Room Air* 0 21 Intake/Output Intake and Output 01/02/25 07:00 Intake Total 300 ml Balance 300 ml Intake Oral 0 ml IV Total 300 ml Medications Current Medications Medications Dose Ordered Sig/Dominique Route Start Time Stop Time Status Last Admin Dose Admin Docusate Sodium 100 mg BIDPRN PRN PO 01/01/25 03:30 Acetaminophen 650 mg Q6HP PRN PO 01/01/25 03:30 Ondansetron HCl 4 mg Q4HP PRN IV 01/01/25 03:30 Morphine Sulfate 2 mg Q4HPRN PRN IV 01/01/25 03:30 01/02/25 01:43 2 MG Enoxaparin Sodium 40 mg DAILY SC 01/01/25 10:00 Piperacillin Sod/ Tazobactam Sod 100 ml @ 25 mls/hr Q8HR IV 01/01/25 14:00 01/02/25 06:20 25 MLS/HR Vancomycin HCl 0 ml @ 0 mls/hr UD IV 01/01/25 04:15 Pantoprazole Sodium 40 mg DAILY IV 01/02/25 10:00 Diagnostic Test (Pha) 1 strip ACHS 01/01/25 07:00 01/02/25 06:06 1 STRIP Insulin Human Regular ACHS SC 01/01/25 07:00 Dextrose 50 ml UD PRN IV 01/01/25 04:15 Methylprednisolone Sodium Succinate 40 mg BID IV 01/01/25 10:00 01/01/25 21:46 40 MG Vancomycin HCl 100 ml @ 100 mls/hr Q12H IV 01/01/25 15:00 01/02/25 03:26 100 MLS/HR Sodium Chloride 1,000 ml @ 250 mls/hr Q4H IV 01/02/25 00:00 01/02/25 06:14 250 MLS/HR Laboratory Results Laboratory Tests 01/01/25 00:13 01/01/25 03:32 Blood Gas Results Test 01/02/25 00:06 Arterial Blood pH 7.403 (7.350-7.450) FiO2 % 21.0 Microbiology Microbiology Date/Time Source Procedure Growth Status 01/01/25 09:35 Chest Gram Stain - Final Resulted 01/01/25 09:35 Chest Wound Culture - Preliminary Resulted 01/01/25 01:26 Blood Blood Culture - Preliminary Resulted Labs and/or images reviewed: Labs reviewed by me, Image(s) reviewed by me Assessment/Plan Assessment/Plan Acute Metabolic encephalopathy likely secondary to sepsis Sepsis due to exacerbated pemphigus foliaceous: Vancomycin Zosyn: Blood cultures pending urine culture Acute respiratory failure secondary to bilateral pleural effusion Rule out CVA Rule out PE Hypertension Dyslipidemia Diabetes Coronary artery disease status post PCI with stent placement Chronic microcytic anemia Pemphigus foliaceous - currently status bed-bound Multiple wounds over the arms and legs bilateral: Wound cultures pending Noncompliance (he is refusing cardiac monitoring and pulse oximetry) Prognosis Very poor Time spent 50 minutes Patient is full code Not stable for transfer to [place] Plan discussed with: Patient My Orders Orders - ROCK ALFONSO MD Procedure Category Date Status Time Npo (Nothing By DIET 01/01/25 Transmitted Mouth) Diet Dinner * Dietary Consult CONS 01/02/25 Transmitted 07:31 Date of Service: Jan 02, 2025 Billing Provider: ROCK ALFONSO MD Common Visit Codes: [id number] INP/OBS CARE(HIGH) ROCK ALFONSO MD Jan 02, 2025 10:41
[2025-01-02] MEDS: PANTOPRAZOLE 40 MG/10 ML VIAL INJ IV SCH (12:08)
[2025-01-02 15:11] LABS: Basophils # (auto) 0 10 ^3/uL (0-0.2); Basophils % (auto) 0.2 % (0.0-2.0); Eosinophils # (auto) 0 10 ^3/uL (0-0.8); Nucleated Red Blood Cells % 0.2 %
[2025-01-02 15:13] LABS: Eosinophils % (auto) 0.2 % (0.0-7.0); Hematocrit 32.9 % (41.0-53.0); Hemoglobin 9.1 g/dL (13.5-17.5); Lymphocytes # (auto) 1.4 10 ^3/uL (0.4-5.4); Lymphocytes % (auto) 10.5 % (10.0-50.0); Mean Corpuscular Hemoglobin 27.3 pg (28.0-32.0); Mean Corpuscular Hgb Conc. 27.7 g/dL (32.0-36.0); Mean Corpuscular Volume 98.6 fL (80.0-100.0); Monocytes # (auto) 0.4 10 ^3/uL (0-1.3); Monocytes % (auto) 3.4 % (0.0-12.0); Neutrophils # (auto) 11.2 10 ^3/uL (1.6-8.6); Neutrophils % (auto) 85.7 % (37.0-80.0); Platelet Count (auto) 292 10^3/uL (140-450); Red Blood Cells 3.34 10^6/uL (4.5-5.90); Red Cell Distribution Width 22.1 % (11.8-14.3); White Blood Cell 13.1 10^3/uL (4.4-10.8)
[2025-01-02 15:59] LABS: Anion Gap 8.00001 (5-15); BUN/Creatinine Ratio 20.5 (10.0-20.0); Potassium 4.5 mmol/L (3.5-5.1); Sodium 136 mmol/L (136-145)
[2025-01-02 16:11] LABS: Alanine Aminotransferase < 9 U/L (7-40); Alkaline Phosphatase 180 U/L (46-116); Aspartate Aminotransferase < 8 U/L (13-40); Bilirubin, Total < 0.2 mg/dL (0.2-1.0); Calcium 8.6 mg/dL (8.7-10.4); Chloride 118 mmol/L (98-107); Glucose 149 mg/dL (74-106)
[2025-01-02 16:14] LABS: Blood Urea Nitrogen 86 mg/dL (9-23); Carbon Dioxide < 10 mmol/L (20-31)
[2025-01-02 21:36] LABS: Anion Gap 20 (5-15)
[2025-01-02 21:44] LABS: Blood Urea Nitrogen 34 mg/dL (9-23); Calcium 7.1 mg/dL (8.7-10.4); Carbon Dioxide 14 mmol/L (20-31); Chloride 134 mmol/L (98-107); Glucose 167 mg/dL (74-106)
[2025-01-02 21:46] LABS: Sodium 168 mmol/L (136-145)
[2025-01-02] MEDS: BUMETANIDE 2.5mg/10ml (0.25 mg/ml) INJ IV ONE (21:54)
[2025-01-03] VITALS (62 sets, daily range): BP systolic 93–138; BP diastolic 36–58; PULSE 88–114; RESP 10–29; TEMP 96.1–98.8; O2SAT 30–100
[2025-01-03] MEDS: D5W 5% 1,000 ML IV SCH ×2 (00:45→12:35)
[2025-01-03] MEDS ORDERED: D5W 5% 1,000 ML IV SCH (03:45)
[2025-01-03 06:40] LABS: Anion Gap 22 (5-15); Basophils # (auto) 0 10 ^3/uL (0-0.2); Basophils % (auto) 0.2 % (0.0-2.0); Eosinophils # (auto) 0 10 ^3/uL (0-0.8); Hematocrit 27.3 % (41.0-53.0); Hemoglobin 8.2 g/dL (13.5-17.5); Lymphocytes # (auto) 1.6 10 ^3/uL (0.4-5.4); Mean Corpuscular Hemoglobin 27.7 pg (28.0-32.0); Mean Corpuscular Volume 92.2 fL (80.0-100.0); Monocytes # (auto) 0.4 10 ^3/uL (0-1.3); Monocytes % (auto) 2.9 % (0.0-12.0); Neutrophils % (auto) 84.9 % (37.0-80.0); Nucleated Red Blood Cells % 0.3 %; Platelet Count (auto) 280 10^3/uL (140-450); Potassium 4.1 mmol/L (3.5-5.1); Red Blood Cells 2.96 10^6/uL (4.5-5.90); Red Cell Distribution Width 21.9 % (11.8-14.3)
[2025-01-03 06:43] LABS: Calcium 6.9 mg/dL (8.7-10.4); Carbon Dioxide 12 mmol/L (20-31); Chloride 139 mmol/L (98-107)
[2025-01-03 06:44] LABS: Sodium 173 mmol/L (136-145)
[2025-01-03 06:45] LABS: BUN/Creatinine Ratio 14.2 (10.0-20.0)
[2025-01-03 06:58] LABS: Blood Urea Nitrogen 33 mg/dL (9-23); Glucose 222 mg/dL (74-106)
[2025-01-03] MEDS ORDERED: ARTIFICIAL TEARS 15ml EACHEYE PRN (11:30)
[2025-01-03] MEDS: MORPHINE SULFATE INJ 2 MG/ml SYRG IV PRN (13:54)
--- NOTE | 2025-01-03 14:02 | DVH ---
AP portable chest HISTORY: sob Comparison: XY CHEST PORTABLE on DOS: 12/31/24 FINDINGS: Heart size is enlarged with a left ventricular configuration. Aorta is tortuous. There is pulmonary vascular congestion present IMPRESSION: 1. Signs of pulmonary edema
--- NOTE | 2025-01-03 14:33 | MEDREC ---
[facility] Intervention Section I [facility] Intervention: Review courses of therapy (MRSA SCREEN POSITIVE CONSIDER ADDING MUPIROCIN 2% OINTMENT 1 APPLICATION IN EACH NOSTRIL BID FOR 5 DAYS ) YARELI ORTIZ PHARMACIST Jan 03, 2025 14:33
--- NOTE | 2025-01-03 15:02 | DVHCONRES ---
Date Seen: Jan 03, 2025 Resident Creating Document: TAURUS BRITTON RESIDENT Referring Physician Reason for Consultation BONILLA History of Present Illness The patient is a 75-year-old male with past medical history including hypertension, pemphigus foliaceous, type 2 diabetes, and CAD s-p PCI (10 years ago), who was admitted on December 26 with acute altered mental status and shortness of breath. 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 On admission, the patient was found to have acute kidney injury with progressive elevation of creatinine (currently 2.33) and BUN (currently 33), as well as a progressive rise in serum sodium (most recent 172 ) Additional laboratory findings include: Serum osmolality: 371 mOsm/kg Glucose: 238 mg/dL Carbon dioxide: 12 mmol/L (low) Anion gap: 22 Hb downtrending (current 8.2 from 11.4 two days ago) Calcium: decreased (6.9 ) urine studies ( pending) Cultures revealed MRSA and Group B Streptococcus from wound cultures, with blood cultures also positive for MRSA. Daptomycin was started. The patients current management includes administration of D5W 5% at 125 mL/hour to gradually correct hypernatremia. His serum sodium is being corrected slowly to avoid osmotic demyelination syndrome. Close monitoring of electrolytes, renal function, and volume status is ongoing. Advanced directive: Full Code per . 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, reported after using Jardiance) Past Surgical History Appendectomy Percutaneous coronary intervention with stent placement (>10 years ago) Family History: Aneurysm G8 FATHER FH: cancer G8 MOTHER Hypertension G8 FATHER Allergies: Coded Allergies: Lisinopril (Verified Allergy, Unknown, 12/31/24) Metformin (Verified Allergy, Unknown, 12/31/24) Allergies Lisinopril, metformin and Jardiance Home Meds Reported Medications Lactobacillus (PROBIOTIC) Cap, 1 CAP PO DAILY, CAP 01/01/25 Ferrous Sulfate Dried (Iron High Potency) 65 Mg Tab, 65 MG PO DAILY, TAB 01/01/25 Tamsulosin Hcl (Flomax) 0.4 Mg Cap, 2 CAP PO HS, #30 CAP 11 Refills 01/01/25 Famotidine (PEPCID TABLET) 20 Mg Tb, 2 TAB PO BID, #60 TAB 5 Refills 01/01/25 Atorvastatin Calcium (ATORVASTATIN CALCIUM) 80 Mg Tab, 1 TAB PO HS, #30 TAB 5 Refills 01/01/25 Nitroglycerin (Nitrostat) 0.4 Mg Sub, 0.4 MG SL PRN for FOR CHEST PAIN, INJ 01/01/25 Metoprolol Tartrate (Metoprolol Tartrate) 50 Mg Tab, 50 MG PO BID for 30 Days, MG 01/01/25 Ezetimibe (Zetia) 10 Mg Tab, 1 TAB PO DAILY, #30 TAB 5 Refills 01/01/25 Dabigatran Etexilate Mesylate (Pradaxa) 150 Mg Cap, 1 CAP PO BID, #180 CAP 1 Refill 01/01/25 Mycophenolate Mofetil (Cellcept) 500 Mg Tab, 1 TAB PO BID, #180 TAB 3 Refills 01/01/25 Moxifloxacin Hydrochloride (Moxifloxacin) 0.5 % Ever, 0.5 % OP DAILY, EVER 01/01/25 Polyethylene Glycol-Propylene (Systane) Renee, 1 DROP EACHEYE DAILY, #30 ML 5 Refills 01/01/25 Current Medications Current Medications Medications (Trade) Dose Ordered Sig/Dominique Route PRN Reason Start Time Stop Time Status Last Admin Dextrose 1,000 ml @ 60 mls/hr [id number] IV 01/03/25 00:45 01/03/25 03:45 DC 01/03/25 00:45 Dextrose 1,000 ml @ 100 mls/hr Q10H IV 01/03/25 03:45 01/03/25 10:06 DC Dextrose 1,000 ml @ 125 mls/hr Q8H IV 01/03/25 10:15 01/03/25 12:35 Artificial Tears (Tears Naturale) 1 drop Q2HP PRN EACHEYE DRY EYES 01/03/25 11:30 Daptomycin 550 mg/ Sodium Chloride 50 ml @ 100 mls/hr DAILY IV 01/03/25 11:30 Mycophenolate Mofetil (Cellcept) 500 mg BID PO 01/03/25 22:00 Morphine Sulfate 3 mg Q3HPRN PRN IV SEVERE PAIN (7-10 PAIN SCALE) 01/03/25 13:30 01/03/25 13:54 Review of Systems Constitutional: Negative for fever, chills. Respiratory: Positive for acute shortness of breath. Cardiovascular: No chest pain reported. GI: No nausea, vomiting. : No urinary complaints reported. Skin: Dry skin, pemphigus foliaceus. Vital Signs Vital Signs Date Time Temp Pulse Resp B/P (MAP) Pulse Ox O2 Delivery O2 Flow Rate FiO2 01/03/25 14:49 101 20 134/68 01/03/25 12:00 97.5 100 207.5 01/03/25 08:00 Room Air* 0 21 Physical Exam General: Patient alert but appears in acute distress; receiving morphine for pain control. Skin: Dry skin throughout body (consistent with pemphigus foliaceus). Cardiovascular: No murmurs, regular rhythm. Pulmonary: Decreased breath sounds, bilateral crackles. Abdomen: Soft, nontender. Labs/Diagnostic Data Labs Test 01/03/25 14:17 01/03/25 11:50 01/03/25 05:55 01/02/25 21:12 Range/Units Sodium Level 172 *H 136-145 mmol/L POC Glucose 238 H 70-106 mg/dl White Blood Count 13.0 H 4.4-10.8 10^3/uL Red Blood Count 2.96 L 4.5-5.90 10^6/uL Hemoglobin 8.2 L 13.5-17.5 g/dL Hematocrit 27.3 #L 41.0-53.0 % Mean Corpuscular Volume 92.2 # 80.0-100.0 fL Mean Corpuscular Hemoglobin 27.7 L 28.0-32.0 pg Mean Corpuscular Hemoglobin Concent 30.0 L 32.0-36.0 g/dL Red Cell Distribution Width 21.9 H 11.8-14.3 % Platelet Count 280 140-450 10^3/uL Mean Platelet Volume 6.9 6.9-10.8 fL Neutrophils (%) (Auto) 84.9 H 37.0-80.0 % Lymphocytes (%) (Auto) 12.0 10.0-50.0 % Monocytes (%) (Auto) 2.9 0.0-12.0 % Eosinophils (%) (Auto) 0.0 0.0-7.0 % Basophils (%) (Auto) 0.2 0.0-2.0 % Neutrophils # (Auto) 11.0 H 1.6-8.6 10 ^3/uL Lymphocytes # (Auto) 1.6 0.4-5.4 10 ^3/uL Monocytes # (Auto) 0.4 0-1.3 10 ^3/uL Eosinophils # (Auto) 0 0-0.8 10 ^3/uL Basophils # (Auto) 0 0-0.2 10 ^3/uL Nucleated Red Blood Cells 0.3 % Potassium Level 4.1 3.5-5.1 mmol/L Chloride Level 139 H 98-107 mmol/L Carbon Dioxide Level 12 L 20-31 mmol/L Anion Gap 22 H 5-15 Blood Urea Nitrogen 33 H 9-23 mg/dL Creatinine 2.33 H 0.700-1.30 mg/dL Glomerular Filtration Rate Calc 29 >90 mL/min BUN/Creatinine Ratio 14.2 10.0-20.0 Serum Glucose 222 H 74-106 mg/dL Serum Osmolality 371 H 278-298 mOsm/kg Calcium Level 6.9 L 8.7-10.4 mg/dL Creatine Kinase 146 46-171 U/L Random Vancomycin Level 23.4 H 5-10 ug/mL Blood Gas Specimen Type Arterial Blood Gas Sample Site Left radial Blood Gas Patient Temperature 37.0 Arterial Blood Date Drawn [id number] Arterial Blood pH 7.420 7.350-7.450 Arterial Blood Partial Pressure CO2 20.3 L 35.0-48.0 mmHg Arterial Blood Partial Pressure O2 94.9 83.0-108.0 mmHg Arterial Blood HCO3 12.9 L 21.0-28.0 mmol/L Arterial Blood Oxygen Saturation 95.7 94.0-98.0 % Arterial Blood Base Excess -10.0 L -2.0-3.0 mmol/L Arterial Blood Oxyhemoglobin 94.8 94.0-98.0 % Arterial Blood Carboxyhemoglobin 0.3 L 0.5-1.5 % Arterial Blood Methemoglobin 0.6 0.0-1.5 % Nael Test Modified Blood Gas Total Hemoglobin 9.10 L 13.5-17.5 g/dL Blood Gas Modality Room air FiO2 % 21.0 Test 01/02/25 14:45 01/02/25 10:16 01/02/25 00:06 01/01/25 03:32 Range/Units B-Type Natriuretic Peptide 90.73 0-100 pg/mL Vancomycin Level Trough 23.2 H 5-10 ug/mL Total Bilirubin < 0.2 L 0.2-1.0 mg/dL Aspartate Amino Transferase (AST) < 8 L 13-40 U/L Alanine Aminotransferase (ALT) < 9 7-40 U/L Alkaline Phosphatase 180 H 46-116 U/L Total Protein 8.0 5.7-8.2 g/dL Albumin 4.0 3.2-4.8 g/dL Blood Gas Liter Flow 0.00 Blood Gas Spontaneous Rate 20 Specimen Drawn By Yunier pena rt Prothrombin Time 15.2 H 9.3-11.8 sec Prothrombin Time INR 1.49 H 0.9-1.15 Activated Partial Thromboplast Time 42.1 H 24.5-34.5 SEC D-Dimer, Quantitative 1.57 H 0.0-0.49 mg/L FEU Phosphorus Level 3.7 2.4-5.1 mg/dL Magnesium Level 1.8 1.6-2.6 mg/dL Troponin I High Sensitivity 20 </=54 ng/L Triglycerides Level 89 < 150 mg/dL Cholesterol Level < 50.0 < 200 mg/dL LDL Cholesterol 13 < 100 mg/dL HDL Cholesterol 17 L 40-59 mg/dL Thyroid Stimulating Hormone (TSH) 0.90 0.55-4.78 uIU/mL Test 01/01/25 01:50 01/01/25 01:26 01/01/25 00:13 Range/Units Influenza Type A Antigen Negative Negative Influenza Type B Antigen Negative Negative SARS-CoV-2 Antigen (Rapid) Negative NEGATIVE Lactic Acid Level 9.6 *H 0.4-2.0 mmol/L Vitamin B12 Level 985 H 211-911 pg/mL Vitamin D 25-Hydroxy 31.7 30.0-100 ng/mL Hemoglobin A1c 6.3 H <5.7 % A1C Microbiology Date/Time Source Procedure Growth Status 01/03/25 00:30 Nose MRSA Screen - Final Complete 01/01/25 01:26 Blood Blood Culture - Preliminary Resulted Assessment BONILLA likely due to VMN Prerenal azotemia likely due to volume depletion due to sepsis Severe hypernatremia MRSA Bacteremia likely due to skin breakdowns due to 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 Decrease sodium slowly over 24 hours . Continue D5W 5% at 125 mL/hr; adjust infusion rate based on serial sodium levels. Daily labs: BMP, serum osmolality, urine sodium, urine osmolality, CBC Conservative management at this time; patient not a candidate for urgent dialysis. Monitor urine output Continue Daptomycin therapy. H&H monitor Case discussed with code status: full code Addendum Patient seen and examined, plan discussed with resident. Agree with above, we will follow closely Plan discussed with: Spouse TAURUS BRITTON RESIDENT Jan 03, 2025 15:02 BOBBI WILLIAMSON MD Jan 03, 2025 19:16
[2025-01-03] MEDS: DAPTOMYCIN IV SCH (16:00)
[2025-01-03] MEDS: SODIUM CHL 0.9% IV SCH (16:00)
[2025-01-03] MEDS ORDERED: DEXTROSE (50%) 50ML SYRG IV PRN (17:00)
--- NOTE | 2025-01-03 17:30 | DVHDSRES ---
Discharge Summary Date of Admission Resident Creating Document: KISHAN VANESSA RESIDENT Jan 01, 2025 at 03:30 Date of Discharge: Jan 03, 2025 Admitting Diagnosis AMS Wounds: whole body scaly skin, crusting Labs/Diagnostic Data: Laboratory Results Test 01/03/25 14:17 01/03/25 11:50 01/03/25 05:55 01/02/25 21:12 Sodium Level 172 mmol/L (136-145) POC Glucose 238 mg/dl (70-106) White Blood Count 13.0 10^3/uL (4.4-10.8) Red Blood Count 2.96 10^6/uL (4.5-5.90) Hemoglobin 8.2 g/dL (13.5-17.5) Hematocrit 27.3 % (41.0-53.0) Mean Corpuscular Volume 92.2 fL (80.0-100.0) Mean Corpuscular Hemoglobin 27.7 pg (28.0-32.0) Mean Corpuscular Hemoglobin Concent 30.0 g/dL (32.0-36.0) Red Cell Distribution Width 21.9 % (11.8-14.3) Platelet Count 280 10^3/uL (140-450) Mean Platelet Volume 6.9 fL (6.9-10.8) Neutrophils (%) (Auto) 84.9 % (37.0-80.0) Lymphocytes (%) (Auto) 12.0 % (10.0-50.0) Monocytes (%) (Auto) 2.9 % (0.0-12.0) Eosinophils (%) (Auto) 0.0 % (0.0-7.0) Basophils (%) (Auto) 0.2 % (0.0-2.0) Neutrophils # (Auto) 11.0 10 ^3/uL (1.6-8.6) Lymphocytes # (Auto) 1.6 10 ^3/uL (0.4-5.4) Monocytes # (Auto) 0.4 10 ^3/uL (0-1.3) Eosinophils # (Auto) 0 10 ^3/uL (0-0.8) Basophils # (Auto) 0 10 ^3/uL (0-0.2) Nucleated Red Blood Cells 0.3 % Potassium Level 4.1 mmol/L (3.5-5.1) Chloride Level 139 mmol/L (98-107) Carbon Dioxide Level 12 mmol/L (20-31) Anion Gap 22 (5-15) Blood Urea Nitrogen 33 mg/dL (9-23) Creatinine 2.33 mg/dL (0.700-1.30) Glomerular Filtration Rate Calc 29 mL/min (>90) BUN/Creatinine Ratio 14.2 (10.0-20.0) Serum Glucose 222 mg/dL (74-106) Serum Osmolality 371 mOsm/kg (278-298) Calcium Level 6.9 mg/dL (8.7-10.4) Creatine Kinase 146 U/L (46-171) Random Vancomycin Level 23.4 ug/mL (5-10) Blood Gas Specimen Type Arterial Blood Gas Sample Site Left radial Blood Gas Patient Temperature 37.0 Arterial Blood Date Drawn [id number] Arterial Blood pH 7.420 (7.350-7.450) Arterial Blood Partial Pressure CO2 20.3 mmHg (35.0-48.0) Arterial Blood Partial Pressure O2 94.9 mmHg (83.0-108.0) Arterial Blood HCO3 12.9 mmol/L (21.0-28.0) Arterial Blood Oxygen Saturation 95.7 % (94.0-98.0) Arterial Blood Base Excess -10.0 mmol/L (-2.0-3.0) Arterial Blood Oxyhemoglobin 94.8 % (94.0-98.0) Arterial Blood Carboxyhemoglobin 0.3 % (0.5-1.5) Arterial Blood Methemoglobin 0.6 % (0.0-1.5) Nael Test Modified Blood Gas Total Hemoglobin 9.10 g/dL (13.5-17.5) Blood Gas Modality Room air FiO2 % 21.0 Test 01/02/25 14:45 01/02/25 10:16 01/02/25 00:06 01/01/25 03:32 B-Type Natriuretic Peptide 90.73 pg/mL (0-100) Vancomycin Level Trough 23.2 ug/mL (5-10) Total Bilirubin < 0.2 mg/dL (0.2-1.0) Aspartate Amino Transferase (AST) < 8 U/L (13-40) Alanine Aminotransferase (ALT) < 9 U/L (7-40) Alkaline Phosphatase 180 U/L (46-116) Total Protein 8.0 g/dL (5.7-8.2) Albumin 4.0 g/dL (3.2-4.8) Blood Gas Liter Flow 0.00 Blood Gas Spontaneous Rate 20 Specimen Drawn By Yunier mooney Prothrombin Time 15.2 sec (9.3-11.8) Prothrombin Time INR 1.49 (0.9-1.15) Activated Partial Thromboplast Time 42.1 SEC (24.5-34.5) D-Dimer, Quantitative 1.57 mg/L FEU (0.0-0.49) Phosphorus Level 3.7 mg/dL (2.4-5.1) Magnesium Level 1.8 mg/dL (1.6-2.6) Troponin I High Sensitivity 20 ng/L (</=54) Triglycerides Level 89 mg/dL (< 150) Cholesterol Level < 50.0 mg/dL (< 200) LDL Cholesterol 13 mg/dL (< 100) HDL Cholesterol 17 mg/dL (40-59) Thyroid Stimulating Hormone (TSH) 0.90 uIU/mL (0.55-4.78) Test 01/01/25 01:50 01/01/25 01:26 01/01/25 00:13 Influenza Type A Antigen Negative (Negative) Influenza Type B Antigen Negative (Negative) SARS-CoV-2 Antigen (Rapid) Negative (NEGATIVE) Lactic Acid Level 9.6 mmol/L (0.4-2.0) Vitamin B12 Level 985 pg/mL (211-911) Vitamin D 25-Hydroxy 31.7 ng/mL (30.0-100) Hemoglobin A1c 6.3 % A1C (<5.7) Other Laboratory Tests 01/03/25 14:17 01/03/25 05:55 Brief Hx & Hospital Course: This is a 74-year-old male patient who presents to the ED brought by EMS due to altered mental status which started last Friday (12/26/2024) and sudden onset of dyspnea in functional class IV which started the day of his admission (01/01/2025). Obtained relevant information from EMR and who is at bedside. 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 States that since then, patient has been altered, with fluctuations in mentation. 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 Surgical history: Appendicectomy. PCI status post stent placement over 10 years ago Family history: Denies Social history: Lives in [place] with (she is the next of kin). Denies current tobacco, alcohol and other drug abuse Allergies: Lisinopril, metformin and Jardiance Home medication: Per EMS he is only on Pradaxa, Lipitor, famotidine and metoprolol. Per external med rec he was on tacrolimus before, currently on mycophenolate, ezetimibe, was on prednisone recently. Patient seen and examined at bedside. Currently disoriented, GCS: 11. Patient is responsive to verbal command, on room air, blood pressure stable. at bedside stated that since last May patient started developing the current skin rash, at the time he was taking Jardiance, and he was also exposed to the sun significantly. He went to his gore stitcher which stated that the patient has had pemphigus foliaceous, he underwent two skin biopsies and has been placed in different immunosuppressive agents. No significant improvement has been observed. Per the family members the neck area, armpits seem worse. However in the arms is better. Patient had a head CT initially lose was unremarkable, he has a chest x-ray with demonstrated mild congestion, a CT angio of the chest also demonstrated anasarca, moderate pleural effusion. Patient has had a blood culture which shows Gram-positive cocci Gram-positive rods. Patient was started on broad-spectrum antibiotics. He was initially hypothermic, his sodium was 136 yesterday morning however in the evening it jumped up to 160s, currently 173, patient was started on D5 water, nephrology was consulted, patient's neurological status declined. He was started on IV pain medication due to severe pain throughout his body due to the skin lesions, code status was addressed with the family members with get reminded the patient remains in full code. A repeat head CT couldnt be performed due to current significant pain any time the patient is mobilized. Patient was started on mycophenolate p.o., high doses of steroids. Significant IV fluids have already been given. General: Disoriented, GCS: 11, afebrile, mucosae are dry, scaly Cardiovascular: Normal S1 and S2, tachycardic. No murmurs, gallops or rubs Respiratory: Normal ventilation mechanics. Crackles on both lungs Abdomen: Soft, nontender, no organomegaly, normal bowel sounds MSK/skin: Mobilizes 4 limbs. Generalized blisters, erosions and crust throughout body, purulent secretion and erythema underneath crust. Lower limb extremities presents crusty lesions with no obvious drainage. Neurological: GCS: 11. No motor no sensitive deficits. Pupils are isocoric and reactive Patient will be transferred to higher level of care/[place], will continue medications as prescribed in spreadsheet. Given patient's current critical state and poor prognosis patient will be transferred to higher level of care, preferably to a burn unit. verbalized understanding and agree with the DC plan, we spent over 30 minutes explaining the plan. Goals of care were discussed for 34 minutes. 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, toxic epidermal necrolysis/kathy-Sung syndrome Bacteremia BONILLA due to VMN Severe hypernatremia Acute respiratory failure secondary to bilateral pleural effusion Hypertension Dyslipidemia Diabetes Coronary artery disease status post PCI with stent placement Chronic microcytic anemia Consults/Reason for consult Nephrology consulted due to bonilla Operations or Procedures [place] [id number] Ph: [phone] DIAGNOSTIC IMAGING Diagnostic Imaging Report : [id number] Signed PATIENT: BON CARDOZO ACCT: [id number] UNIT: [id number] : 1950 LOC: ER ROOM / BED: / AGE / SEX: 74 / M ADM STATUS: REG ER SERVICE 36 ORDERING PHYSICIAN: KOMAL AVILEZ MD PROCEDURE(s): CXRP - CHEST PORTABLE REASON: SOB ORDER NUMBER(s): [id number], ACCESSION NUMBER(s): [id number] CHEST RADIOGRAPH Indication: SOB Technique: Single frontal view of the chest was obtained Comparison: None Findings/ IMPRESSION: Trace left-sided pleural effusion and/or atelectasis. No focal consolidation or pneumothorax. ATED BY: GELA GONZALEZ DO DICTATED DATE/TIME: 01/01/25 0001 SIGNED BY: GELA GONZALEZ DO SIGNED DATE/TIME: 01/01/25 0001 CC: [place] [id number] Ph: [phone] DIAGNOSTIC IMAGING Diagnostic Imaging Report : [id number] Signed PATIENT: BON CARDOZO ACCT: [id number] UNIT: [id number] : 1950 LOC: OVERFLOW ROOM / BED: [address] [place] [address] AGE / SEX: 74 / M ADM STATUS: ADM IN SERVICE 4 ORDERING PHYSICIAN: LIZ ALEX RESIDENT PROCEDURE(s): CTACH - CT ANGIO CHEST CONTRAST REASON: RULE OUT PE ORDER NUMBER(s): [id number], ACCESSION NUMBER(s): [id number] CLINICAL INFORMATION: Pulmonary embolism. No other clinical information provided. TECHNIQUE: Axial CTA images of the chest were obtained after the uneventful administration of 100 mL of Omnipaque 350 IV contrast. Coronal and sagittal reformatted images and MIP images were obtained, reviewed, and stored. One or more of the following dose reduction techniques were used: Automated exposure control. Adjustment of mA and/or kV according to patient size. CTDIvol = 16, 11.84, 0.07, 0.07 mGy DLP = 638.67 mGy-cm COMPARISON: Chest radiograph dated 12/31/2024. FINDINGS: Pulmonary arteries: Limited evaluation for pulmonary embolism due to respiratory motion artifact suboptimal contrast opacification of the pulmonary arteries. No evidence of central or lobar pulmonary embolism. Can not exclude segmental or subsegmental pulmonary emboli Aorta: No aneurysm or dissection. Moderate atherosclerotic calcification Cardiac: Heart size is within normal limits. Marked coronary artery calcification. Mediastinum/lonnie: No mass or adenopathy. Lungs: Small to moderate bilateral pleural effusions with overlying compressive atelectasis. No focal consolidation visualized. Limited evaluation due to respiratory motion artifact. No pneumothorax. Chest wall: Diffuse anasarca. Upper abdomen: Small calcified gallstones in the gallbladder. Moderate fatty changes of the pancreas. Bones: No fracture or suspicious intraosseous lesions. IMPRESSION: 1. Limited evaluation for pulmonary embolism for the reasons described above. No evidence of central or lobar pulmonary embolism. Can not exclude segmental or subsegmental pulmonary emboli. 2. Small to moderate bilateral pleural effusions with overlying compressive atelectasis. 3. Cholelithiasis. 4. Anasarca. 5. Additional findings as described above. ATED BY: TUSHAR GRAJEDA DO DICTATED DATE/TIME: 01/01/25705 SIGNED BY: TUSHAR GRAJEDA DO SIGNED DATE/TIME: 01/01/25705 CC: [place] [id number] Ph: [phone] DIAGNOSTIC IMAGING Diagnostic Imaging Report : [id number] Signed PATIENT: BON CARDOZO ACCT: [id number] UNIT: [id number] : 1950 LOC: OVERFLOW ROOM / BED: [address] [place] [address] AGE / SEX: 74 / M ADM STATUS: ADM IN SERVICE 3 ORDERING PHYSICIAN: LIZ ALEX RESIDENT PROCEDURE(s): HWOCT - HEAD WITHOUT CONTRAST REASON: [facility] ORDER NUMBER(s): [id number], ACCESSION NUMBER(s): [id number] CLINICAL INFORMATION: Acute loss of consciousness. TECHNIQUE: Axial imaging was obtained through the brain without contrast. Coronal and sagittal reformatted images were obtained, reviewed, and stored. Images were reviewed in brain and bone windows. All CT scans at this medical facility are performed using dose modulation techniques as appropriate to a performed exam including the following: Automated exposure control was utilized; adjustment of the MA and/or KV according to patient size; and use of iterative reconstruction technique. CTDIvol = 59.49 mGy DLP = 953.58 mGy-cm COMPARISON: None FINDINGS: There is no acute intracranial hemorrhage. No mass effect or midline shift. The ventricles and sulci are within normal limits in size for age. Basal cisterns are patent. The calvarium is unremarkable. Mild mucosal thickening of the paranasal sinuses. Mastoid air cells are clear. IMPRESSION: No CT evidence of acute intracranial abnormality. ATED BY: TUSHAR GRAJEDA DO DICTATED DATE/TIME: 01/01/25730 SIGNED BY: TUSHAR GRAJEDA DO SIGNED DATE/TIME: 01/01/25 0731 CC: [place] [id number] Ph: [phone] DIAGNOSTIC IMAGING Diagnostic Imaging Report : [id number] Signed PATIENT: BON CARDOZO ACCT: [id number] UNIT: [id number] : 1950 LOC: [facility] IN ICU ROOM / BED: [facility] / A AGE / SEX: 75 / M ADM STATUS: ADM IN SERVICE 1122 ORDERING PHYSICIAN: KISHAN VANESSA PROCEDURE(s): CXRP - CHEST PORTABLE REASON: sob ORDER NUMBER(s): [id number], ACCESSION NUMBER(s): [id number] AP portable chest HISTORY: sob Comparison: XY CHEST PORTABLE on DOS: 12/31/24 FINDINGS: Heart size is enlarged with a left ventricular configuration. Aorta is tortuous. There is pulmonary vascular congestion present IMPRESSION: 1. Signs of pulmonary edema ATED BY: GIACOMO MARLEY MD DICTATED DATE/TIME: 01/03/25 1359 SIGNED BY: GIACOMO MARLEY MD SIGNED DATE/TIME: 01/03/25 1359 CC: [place] [id number] Ph: [phone] DIAGNOSTIC IMAGING Diagnostic Imaging Report : [id number] Signed PATIENT: BON CARDOZO ACCT: [id number] UNIT: [id number] : 1950 [facility] AGE / SEX: 74 / M ADM STATUS: ADM IN SERVICE 0330 ORDERING PHYSICIAN: LIZ ALEX PROCEDURE(s): ECIDC - ECHO 2D MODE CARDIAC DOP REASON: SOB ORDER NUMBER(s): [id number], ACCESSION NUMBER(s): [id number] APPROVED REPORT EXAM: LIMITED Two-dimensional echocardiogram. Blood Pressure: 106/29 mmHg RISK FACTORS Height: 5' 8", Weight: 143 DIMENSIONS LVDd 4.6 (3.8-5.7cm) LA (2D) (1.9-4.0cm) Aortic Root (2.0-3.7cm) LVDs 3.6 (2.5-4.0cm) LA (MM) (1.9-4.0cm) Aortic Cusp Exc (1.5- 2.0cm) EF (%) 45.0 (55-70%) Rt. Atrium (1.9-4.0cm) Asc. Aorta cm Mitral Valve Mitral Mitral Stenosis E/A ratio 0.0 2D MVA cm2 Other Information Quality : Technically Limited Rhythm : Atrial Fibrillation Technically limited study due to body habitus, pt skin falling off all over body due to autoimmune, very painful to touch and electrodes unable to be attached. Bleeding sores in echo windows, very limited. Conclusion UNDERLY ING TACHYCARDIA MODERATE DEGREE LVH AND MODERATE DEGREE LV DIASTOLIC DYSFUNCTION GLOBAL LV HYPOKINESIS LV EF IS ABOUT 25% AND IS MODERATELY REDUCED DYSKINESIS OF IVS MODERATELY DILATED RV LIMITED STUDY GROSSLY NORMAL VALVES NO EFFUSION SUGGESTION; REPEAT STUDY WHEN HEART RATE IS BETWEEN 50 TO 80 PER MINUTE FOR PROPER LV FUNCTION AND VALVES EVALUATION SIGNED BY: MELINDA HAYDEN MD SIGNED DATE/TIME: 01/01/251946 CC: Condition at Discharge: Poor Final Diagnosis/Problems List Metabolic encephalopathy likely secondary to sepsis Sepsis due to exacerbated pemphigus foliaceous Cellulitis POA MRSA in wound, toxic epidermal necrolysis/kathy-Sung syndrome POA, 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 POA PE ruled out Bacteremia severe anemia secondary coagulopathy BONILLA due to VMN Severe hypernatremia Acute respiratory failure secondary to bilateral pleural effusion Hypertension Dyslipidemia Diabetes Coronary artery disease status post PCI with stent placement Chronic microcytic anemia Discharge Disposition: Acute Care Facility Discharge Instruct/Medications Diet: See Comment Diet comment: TUBE FEEDINGS Activity: No Restrictions, As Tolerated Follow Up/Referral: KRISTINA KURTZ Medications: PER NOV Discharge Statement: "Patient was advised to return to the ER or call 911 if any headaches, dizziness, shortness of breath, chest pain, abdominal pain, bleeding, fevers, or worsening of medical condition. Patient was counseled about treatment plan, medications, possible side effects, patientverbalized understanding. All questions were answered to the best of my ability. This discharge took greater then 30 minutes in planning, reviewing documentation, counseling the patient, and discussing with other team members." ASSESSMENT ASSESSMENT Assessment EXTENSIVE RASH Date of Service: Jan 03, 2025 Billing Provider: KEN BUSTAMANTE MD Common Visit Codes: [id number] CARE 30-74 MIN, [id number] CARE-EACH +30MIN KISHAN VANESSA RESIDENT Jan 03, 2025 17:30 KEN BUSTAMANTE MD Jan 04, 2025 16:04
--- NOTE | 2025-01-03 17:42 | DVH ---
CHEST RADIOGRAPH Indication: ng placement/ resp status Technique: Single frontal view of the chest was obtained COMPARISON: XY CHEST PORTABLE on DOS: 01/03/25, XY CHEST PORTABLE on DOS: 12/31/24 FINDINGS: Lines and Tubes: NG tube ends in the fundus of the stomach. Patchy increased interstitial markings both lung bases, right greater than left, unchanged from the jean pierre appiah study of 01/03/2025 Pleura: No effusion. No pneumothorax. Cardiomediastinal contours: Unremarkable Bones: Unremarkable IMPRESSION: 1. NG tube is in the fundus of the stomach Lung aldana unchanged from prior study.
[2025-01-03] MEDS: ACCU-CHEK COMFORT CURVE STRIP VI SCH (18:36)
[2025-01-03] MEDS: InsuLIN REG 1unit/0.01ml Soln (100units/ml) SC SCH (18:37)
[2025-01-03] MEDS: methylPREDNISolone SOD SUCC 500 MG in SODIUM CHL 0.9% 100 ML IV ONE (20:49)
[2025-01-03] MEDS: MYCOPHENOLATE 500 MG TAB PO SCH (22:00)
[2025-01-03] MEDS: MEROPENEM 1GM IVPB 50 ML IV ONE (22:12)
[2025-01-04] VITALS (38 sets, daily range): BP systolic 98–132; BP diastolic 36–82; PULSE 81–108; RESP 8–28; TEMP 96.6–98.4; O2SAT 93–100
[2025-01-04] MEDS: MEROPENEM 1GM IVPB 50 ML IV SCH ×2 (05:02→21:26)
[2025-01-04 05:16] LABS: Basophils # (auto) 0 10 ^3/uL (0-0.2); Eosinophils # (auto) 0 10 ^3/uL (0-0.8); Hemoglobin 7.1 g/dL (13.5-17.5); Monocytes # (auto) 0.3 10 ^3/uL (0-1.3); Neutrophils # (auto) 8.8 10 ^3/uL (1.6-8.6); Nucleated Red Blood Cells % 0.2 %; Platelet Count (auto) 232 10^3/uL (140-450); White Blood Cell 10.2 10^3/uL (4.4-10.8)
[2025-01-04 05:19] LABS: Basophils % (auto) 0.2 % (0.0-2.0); Lymphocytes # (auto) 1.1 10 ^3/uL (0.4-5.4); Lymphocytes % (auto) 10.7 % (10.0-50.0); Mean Corpuscular Hgb Conc. 29.5 g/dL (32.0-36.0); Mean Corpuscular Volume 94.9 fL (80.0-100.0); Monocytes % (auto) 2.6 % (0.0-12.0); Neutrophils % (auto) 86.5 % (37.0-80.0); Red Blood Cells 2.53 10^6/uL (4.5-5.90)
[2025-01-04 05:55] LABS: Alanine Aminotransferase 26 U/L (7-40); Alkaline Phosphatase 73 U/L (46-116); Anion Gap 15 (5-15); BUN/Creatinine Ratio 11.5 (10.0-20.0); Potassium 4.1 mmol/L (3.5-5.1)
[2025-01-04 05:56] LABS: Magnesium 2.2 mg/dL (1.6-2.6)
[2025-01-04 05:57] LABS: Aspartate Aminotransferase 40 U/L (13-40)
[2025-01-04 06:02] LABS: Albumin 1.4 g/dL (3.2-4.8); Bilirubin, Total 0.2 mg/dL (0.2-1.0); Blood Urea Nitrogen 35 mg/dL (9-23); Calcium 6.2 mg/dL (8.7-10.4); Carbon Dioxide 16 mmol/L (20-31); Chloride 138 mmol/L (98-107); Glucose 237 mg/dL (74-106); Sodium 169 mmol/L (136-145)
[2025-01-04] MEDS: CALCIUM GLUC 1,000mg/50ml-NS 50 ML IV ONE (07:00)
--- NOTE | 2025-01-04 10:58 | DVHPNRES ---
Progress Note Date Seen: Jan 04, 2025 Resident Creating Document: KISHAN VANESSA RESIDENT Medical Necessity Reason Pt with a Central, PICC or Fol: No Subjective Review of Systems Patient was seen and examined at bedside. On room air. BP stable. GCS: 12. Severe pain on repositioning due to skin rash. Patient will be transferred to higher level of care/[place], will continue medications as prescribed in spreadsheet. Given patient's current critical state and poor prognosis patient will be transferred to higher level of care, preferably to a burn unit. verbalized understanding and agree with the DC plan, we spent over 30 minutes explaining the plan. Objective vital signs Vital Sign Date Time Temp Pulse Resp B/P (MAP) Pulse Ox O2 Delivery O2 Flow Rate FiO2 01/04/25 09:07 108 15 110/46 01/04/25 07:00 97.9 99 208.2 01/03/25 20:00 Room Air* 0 21 Total Intake and Output 01/03/25 01/03/25 01/04/25 15:00 23:00 07:00 Intake Total 525 ml 1034 ml Output Total 75 ml 100 ml Balance 450 ml 934 ml medications Current Medications Medications Dose Ordered Sig/Dominique Route Start Time Stop Time Status Last Admin Dose Admin Docusate Sodium 100 mg BIDPRN PRN PO 01/01/25 03:30 Acetaminophen 650 mg Q6HP PRN PO 01/01/25 03:30 Ondansetron HCl 4 mg Q4HP PRN IV 01/01/25 03:30 Pantoprazole Sodium 40 mg DAILY IV 01/02/25 10:00 01/04/25 09:04 40 MG Dextrose 1,000 ml @ 125 mls/hr Q8H IV 01/03/25 10:15 01/04/25 04:57 125 MLS/HR Artificial Tears 1 drop Q2HP PRN EACHEYE 01/03/25 11:30 Daptomycin 550 mg/ Sodium Chloride 50 ml @ 100 mls/hr DAILY IV 01/03/25 11:30 01/03/25 16:00 100 MLS/HR Mycophenolate Mofetil 500 mg BID PO 01/03/25 22:00 Morphine Sulfate 3 mg Q3HPRN PRN IV 01/03/25 13:30 01/04/25 09:07 3 MG Diagnostic Test (Pha) 1 strip Q6HR 01/03/25 18:00 4/29/25 06:00 1 STRIP Insulin Human Regular Q6HR SC 01/03/25 18:00 01/04/25 07:24 6 UNITS Dextrose 50 ml UD PRN IV 01/03/25 17:00 Meropenem 50 ml @ 17 mls/hr Q12H IV 01/04/25 05:00 01/04/25 05:02 17 MLS/HR Methylprednisolone Sodium Succinate 500 mg/Sodium Chloride 100 ml @ 200 mls/hr DAILY IV 01/04/25 10:00 01/06/25 10:00 Examination General: Disoriented, GCS: 11, afebrile, mucosae are dry, scaly Cardiovascular: Normal S1 and S2, tachycardic. No murmurs, gallops or rubs Respiratory: Crackles on both lungs Abdomen: Soft, nontender, no organomegaly, normal bowel sounds MSK/skin: Mobilizes 4 limbs. Generalized blisters, erosions and crust throughout body, purulent secretion and erythema underneath crust. Lower limb extremities presents crusty lesions with no obvious drainage. Neurological: GCS: 11. No motor no sensitive deficits. Pupils are isocoric and reactive laboratory and microbiology Laboratory Tests 01/04/25 04:51 Test 01/04/25 04:51 Range/Units Serum Glucose 237 H 74-106 mg/dL Microbiology Date/Time Source Procedure Growth Status 01/03/25 00:30 Nose MRSA Screen - Final Complete 01/01/25 01:26 Blood Blood Culture - Preliminary Resulted Labs and/or images reviewed: Labs reviewed by me, Image(s) reviewed by me Problem List/Assessment/Plan Problem List/Assessment/Plan Metabolic encephalopathy likely secondary to sepsis Sepsis due to exacerbated pemphigus foliaceous Cellulitis POA MRSA in wound, toxic epidermal necrolysis/kathy-Sung syndrome POA PE ruled out Bacteremia severe anemia secondary coagulopathy BONILLA due to VMN Severe hypernatremia Acute respiratory failure secondary to bilateral pleural effusion Hypertension Dyslipidemia Diabetes Coronary artery disease status post PCI with stent placement Chronic microcytic anemia Plan: Daptomycin IV Merrem and IV D5 water 150 mL/hour Preliminary blood culture growing Gram-positive cocci Pending transferred to higher level of care/[place] Transfuse 1 unit of RBC pack Continue insulin sliding scale moderate q.6 hours Solu-Medrol 500 mg IV daily for three more days Place NG tube Nephrology following We had a lengthy discussion with patient's about goals of care, further discussion will be done with patient's son. Goals of care were discussed for 36 minutes. FULL CODE. critical care time excluding procedures was 81 mins Case was discussed with Dr. Bustamante Plan discussed with: Patient, Spouse, Other (RN) My Orders My Orders Orders - KISHAN VANESSA RESIDENT Procedure Category Date Status Time Artificial Tear 15ml PHA 01/03/25 In Process Opthalmic (Tears Na 11:30 Daptomycin (Cubicin) PHA 01/03/25 In Process 11:30 Chest Portable XY 01/03/25 Resulted 11:22 Mycophenolate Mofetil PHA 01/03/25 In Process (Cellcept) 22:00 Morphine Sulfate PHA 01/03/25 In Process Injection 13:30 Glucose Blood PHA 01/03/25 In Process (Accu-Chek Comfort 18:00 Insulin R (Human) PHA 01/03/25 In Process (Insulin R) 18:00 Dextrose 50% Syringe PHA 01/03/25 In Process 17:00 Meropenem 1gm Ivpb PHA 01/04/25 In Process (Merrem 1gm/ Ns) 05:00 Basic Metabolic Panel LAB 01/05/25 Verified 05:00 Place Og Tube ORDERS 01/03/25 Transmitted 19:17 Tube Feeding DIET 01/04/25 Transmitted Breakfast Type And Screen BBK 01/04/25 In Process 06:59 Methylprednisolone PHA 01/04/25 In Process Sod Succ (Solu Medrol 10:[address] 01/05/25 Logged 11:12 Dietary Evaluation Review Recommendations by RD: Protein Supplementation Comments: 1) If patient remains NPO > 7 days, consider EN/TPN to meet at least 75% estimated daily needs 2) Initiate Pro-Stat @ 30 mL qd 3) Initiate Tj @ 1 pk qd 4) Initiate multivitamin @ 1 tb qd 5) Advance to 60g CCHO cardiac diet when medically feasible, pending [employer] approval 6) Continue to monitor I&O, labs, and skin integrity Expected Outcomes/Goals: 1) patient to receive nutrition support within 7 days of NPO status 2) labs and wound to improve 3) diet to advance 4) follow-up in 2-3 days Date of Service: Jan 04, 2025 Billing Provider: KEN BUSTAMANTE MD Common Visit Codes: [id number] CARE 30-74 MIN, [id number] CARE-EACH +30MIN KISHAN VANESSA RESIDENT Jan 04, 2025 10:58 KEN BUSTAMANTE MD Jan 05, 2025 16:26
[2025-01-04 17:07] LABS: Hemoglobin 8.8 g/dL (13.5-17.5)
--- NOTE | 2025-01-04 17:10 | DVHPN2 ---
Progress Note Date Seen: Jan 04, 2025 Resident Creating Document: TAURUS BRITTON RESIDENT Has the PT tested + for MRSA If YES, has PT been informed?: Yes Medical Necessity Reason Pt with a Central, PICC or Fol: Yes Subjective Review of Systems Patient is seen and examined at bedside, patient will be started on Lasix 40 mg daily and we are going to keep D5W to continue managing the hypernatremia, currently improving. Objective vital signs Vital Sign Date Time Temp Pulse Resp B/P (MAP) Pulse Ox O2 Delivery O2 Flow Rate FiO2 01/04/25 16:00 97.9 84 10 120/63 97.9 01/04/25 12:00 100 01/04/25 08:00 Room Air* 0 21 Total Intake and Output 01/03/25 01/03/25 01/04/25 15:00 23:00 07:00 Intake Total 525 ml 1034 ml Output Total 75 ml 100 ml Balance 450 ml 934 ml medications Current Medications Medications Dose Ordered Sig/Dominique Route Start Time Stop Time Status Last Admin Dose Admin Docusate Sodium 100 mg BIDPRN PRN PO 01/01/25 03:30 Acetaminophen 650 mg Q6HP PRN PO 01/01/25 03:30 Ondansetron HCl 4 mg Q4HP PRN IV 01/01/25 03:30 Pantoprazole Sodium 40 mg DAILY IV 01/02/25 10:00 01/04/25 09:04 40 MG Dextrose 1,000 ml @ 125 mls/hr Q8H IV 01/03/25 10:15 01/04/25 12:44 125 MLS/HR Artificial Tears 1 drop Q2HP PRN EACHEYE 01/03/25 11:30 Mycophenolate Mofetil 500 mg BID PO 01/03/25 22:00 Morphine Sulfate 3 mg Q3HPRN PRN IV 01/03/25 13:30 01/04/25 09:07 3 MG Diagnostic Test (Pha) 1 strip Q6HR 01/03/25 18:00 01/04/25 12:41 1 STRIP Insulin Human Regular Q6HR SC 01/03/25 18:00 01/04/25 12:40 6 UNITS Dextrose 50 ml UD PRN IV 01/03/25 17:00 Meropenem 50 ml @ 17 mls/hr Q12H IV 01/04/25 05:00 01/04/25 05:02 17 MLS/HR Methylprednisolone Sodium Succinate 500 mg/Sodium Chloride 100 ml @ 200 mls/hr DAILY IV 01/04/25 10:00 01/06/25 10:00 Daptomycin 550 mg/ Sodium Chloride 50 ml @ 100 mls/hr Q48H IV 01/04/25 14:00 Examination: GENERAL:Abnormal, HEENT:Normal, NECK:Normal, LUNGS:Normal, CVS:Normal, ABDOMEN:Normal, MSK:Normal, SKIN:Abnormal, NEURO:Abnormal, :Normal laboratory and microbiology Laboratory Tests 01/04/25 04:51 Test 01/04/25 04:51 Range/Units Serum Glucose 237 H 74-106 mg/dL Microbiology Date/Time Source Procedure Growth Status 01/03/25 11:40 Blood Blood Culture - Preliminary NO GROWTH AFTER 24 HOURS OF INCUBATION. 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 Lasix 40 mg daily iv Monitor urine output Blood transfusion 1 PRBC Case discussed with code status: full code Addendum Patient seen and examined, plan discussed with resident. Agree with above, we will follow closely Plan discussed with: Other Dietary Evaluation Review Recommendations by RD: Protein Supplementation Comments: 1) If patient remains NPO > 7 days, consider EN/TPN to meet at least 75% estimated daily needs 2) Initiate Pro-Stat @ 30 mL qd 3) Initiate Tj @ 1 pk qd 4) Initiate multivitamin @ 1 tb qd 5) Advance to 60g CCHO cardiac diet when medically feasible, pending MATCHER OPERATOR approval 6) Continue to monitor I&O, labs, and skin integrity Expected Outcomes/Goals: 1) patient to receive nutrition support within 7 days of NPO status 2) labs and wound to improve 3) diet to advance 4) follow-up in 2-3 days TAURUS BRITTON RESIDENT Jan 04, 2025 17:10 BOBBI WILLIAMSON MD Jan 04, 2025 19:15
[2025-01-04] MEDS: FUROSEMIDE 40 MG/4 ML VIAL IV ONE (17:15)
[2025-01-04 17:21] LABS: Potassium 3.8 mmol/L (3.5-5.1)
[2025-01-04 17:22] LABS: Anion Gap 18 (5-15)
[2025-01-04 17:27] LABS: BUN/Creatinine Ratio 14.9 (10.0-20.0)
[2025-01-04] MEDS: SODIUM CHL 0.9% IV SCH (17:48)
[2025-01-04] MEDS: DAPTOMYCIN IV SCH (17:48)
[2025-01-04 18:09] LABS: Carbon Dioxide 15 mmol/L (20-31); Chloride 137 mmol/L (98-107); Glucose 242 mg/dL (74-106)
[2025-01-04 18:10] LABS: Blood Urea Nitrogen 45 mg/dL (9-23); Calcium 6.6 mg/dL (8.7-10.4)
[2025-01-04 18:11] LABS: Sodium 170 mmol/L (136-145)
[2025-01-04] MEDS: MORPHINE SULFATE INJ 2 MG/ml SYRG IV PRN (18:18)
[2025-01-04] MEDS: methylPREDNISolone SOD SUCC 500 MG in SODIUM CHL 0.9% 100 ML IV SCH (18:38)
[2025-01-04] MEDS: D5W 5% 1,000 ML IV SCH (18:55)
[2025-01-04] MEDS ORDERED: CLINIMIX PER PHARMACY 0 ML IV SCH (20:15)
[2025-01-04] MEDS ORDERED: DEXTROSE (50%) 50ML SYRG IV SCH (20:45)
[2025-01-04] MEDS: ALBUMIN 25% 100 ML IV ONE (21:37)
[2025-01-04] MEDS: AMINO ACID INFUSION IN D10W 1,000 ML IV SCH (23:25)
[2025-01-04] MEDS: InsuLIN REG 1unit/0.01ml Soln (100units/ml) SC SCH (23:59)
[2025-01-04] MEDS: ACCU-CHEK COMFORT CURVE STRIP VI SCH (23:59)
[2025-01-05] VITALS (25 sets, daily range): BP systolic 89–138; BP diastolic 41–63; PULSE 65–108; RESP 7–18; TEMP 96.8–99; O2SAT 92–100
--- NOTE | 2025-01-05 00:42 | DVH ---
CHEST RADIOGRAPH Indication: ngt placement Technique: Single frontal view of the chest was obtained COMPARISON: XY CHEST PORTABLE on DOS: 01/03/25, XY CHEST PORTABLE on DOS: 01/03/25, XY CHEST PORTABLE o n DOS: 12/31/24 FINDINGS: Lines and Tubes: Enteric catheter courses below the level of the diaphragm and terminates within the left upper quadrant, presumably within the gastric lumen. Lungs: Clear Pleura: No effusion. No pneumothorax. Cardiomediastinal contours: Unremarkable. Atherosclerotic vascular calcifications. Bones: Unremarkable IMPRESSION: 1. No acute disease. 2. Enteric catheter.
[2025-01-05 05:11] LABS: Basophils # (auto) 0 10 ^3/uL (0-0.2); Eosinophils # (auto) 0 10 ^3/uL (0-0.8); Monocytes # (auto) 0.2 10 ^3/uL (0-1.3); Neutrophils # (auto) 10.6 10 ^3/uL (1.6-8.6)
[2025-01-05 05:14] LABS: Basophils % (auto) 0.2 % (0.0-2.0); Hematocrit 25.5 % (41.0-53.0); Lymphocytes % (auto) 8.7 % (10.0-50.0); Mean Corpuscular Hgb Conc. 31.3 g/dL (32.0-36.0); Mean Corpuscular Volume 89.3 fL (80.0-100.0); Monocytes % (auto) 1.9 % (0.0-12.0); Neutrophils % (auto) 89.2 % (37.0-80.0); Nucleated Red Blood Cells % 0.3 %; Platelet Count (auto) 190 10^3/uL (140-450); Red Blood Cells 2.85 10^6/uL (4.5-5.90); Red Cell Distribution Width 21.5 % (11.8-14.3); White Blood Cell 11.8 10^3/uL (4.4-10.8)
[2025-01-05 05:26] LABS: Alanine Aminotransferase 27 U/L (7-40); Alkaline Phosphatase 77 U/L (46-116); Anion Gap 14 (5-15); Aspartate Aminotransferase 22 U/L (13-40); BUN/Creatinine Ratio 14.9 (10.0-20.0); Magnesium 2.1 mg/dL (1.6-2.6); Potassium 3.7 mmol/L (3.5-5.1)
[2025-01-05 05:27] LABS: Bilirubin, Total 1.1 mg/dL (0.2-1.0)
[2025-01-05 05:35] LABS: Albumin 2.1 g/dL (3.2-4.8); Blood Urea Nitrogen 42 mg/dL (9-23); Calcium 6.4 mg/dL (8.7-10.4); Carbon Dioxide 16 mmol/L (20-31); Chloride 133 mmol/L (98-107); Glucose 297 mg/dL (74-106); Phosphorus 5.8 mg/dL (2.4-5.1); Total Protein 3.8 g/dL (5.7-8.2)
[2025-01-05 05:36] LABS: Sodium 163 mmol/L (136-145)
[2025-01-05] MEDS: Glucerna 1.2 Cal 1Liter BOTTLE GT SCH (08:09)
[2025-01-05] MEDS: FUROSEMIDE 40 MG/4 ML VIAL IV SCH (09:46)
[2025-01-05] MEDS: CALCIUM GLUC 1,000mg/50ml-NS 50 ML IV ONE (09:46)
--- NOTE | 2025-01-05 11:11 | DVHPNRES ---
Progress Note Date Seen: Jan 05, 2025 Resident Creating Document: KISHAN VANESSA RESIDENT Has the PT tested + for MRSA If YES, has PT been informed?: Yes Medical Necessity Reason Pt with a Central, PICC or Fol: No Subjective Review of Systems Patient was seen and examined at bedside. On room air. BP stable. GCS: 12. Severe pain on repositioning due to skin rash. patient is verbally responding to commands Patient will be transferred to higher level of care/[place], will continue medications as prescribed in spreadsheet. Given patient's current critical state and poor prognosis patient will be transferred to higher level of care, preferably to a burn unit. verbalized understanding and agree with the DC plan, we spent over 30 minutes explaining the plan. Objective vital signs Vital Sign Date Time Temp Pulse Resp B/P (MAP) Pulse Ox O2 Delivery O2 Flow Rate FiO2 01/05/25 08:00 98.8 89 7 109/56 (73) 100 209.8 01/05/25 06:00 Room Air* 0 21 Total Intake and Output 01/04/25 01/04/25 01/05/25 15:00 23:00 07:00 Intake Total 1600 ml 1700 ml 1578 ml Output Total 200 ml 220 ml Balance 1600 ml 1500 ml 1358 ml medications Current Medications Medications Dose Ordered Sig/Dominique Route Start Time Stop Time Status Last Admin Dose Admin Docusate Sodium 100 mg BIDPRN PRN PO 01/01/25 03:30 Acetaminophen 650 mg Q6HP PRN PO 01/01/25 03:30 Ondansetron HCl 4 mg Q4HP PRN IV 01/01/25 03:30 Pantoprazole Sodium 40 mg DAILY IV 01/02/25 10:00 01/05/25 09:46 40 MG Artificial Tears 1 drop Q2HP PRN EACHEYE 01/03/25 11:30 Mycophenolate Mofetil 500 mg BID PO 01/03/25 22:00 Methylprednisolone Sodium Succinate 500 mg/Sodium Chloride 100 ml @ 200 mls/hr DAILY IV 01/04/25 10:00 01/06/25 10:00 01/04/25 18:38 200 MLS/HR Daptomycin 550 mg/ Sodium Chloride 50 ml @ 100 mls/hr Q48H IV 01/04/25 14:00 01/04/25 17:48 100 MLS/HR Furosemide 40 mg DAILY IV 01/05/25 10:00 Morphine Sulfate 2 mg Q3HPRN PRN IV 01/04/25 18:00 01/05/25 06:07 2 MG Meropenem 50 ml @ 17 mls/hr Q12H IV 01/04/25 21:00 01/05/25 09:56 17 MLS/HR Amino Acids 0 ml @ 0 mls/hr PER PHARMACY IV 01/04/25 20:15 Amino Acids/ Electrolytes/ Dextrose 1,000 ml @ 41 mls/hr DAILY@2200 IV 01/04/25 22:00 01/04/25 23:25 41 MLS/HR Diagnostic Test (Pha) 1 strip Q6HR 01/05/25 00:00 01/05/25 06:09 1 STRIP Insulin Human Regular FOLLOW SLIDING SCALE Q6HR SC 01/05/25 00:00 01/05/25 06:11 16 UNITS Dextrose 50 ml UD IV 01/04/25 20:45 Enteral Nutritional Formula 1,000 ml 60ML/HR GT 01/05/25 08:00 01/05/25 08:09 1,000 ML Dextrose 1,000 ml @ 125 mls/hr Q8H IV 01/05/25 11:15 UNV Examination General: Disoriented, GCS: 11, afebrile, mucosae are dry, scaly Cardiovascular: Normal S1 and S2, tachycardic. No murmurs, gallops or rubs Respiratory: Crackles on both lungs Abdomen: Soft, nontender, no organomegaly, normal bowel sounds MSK/skin: Mobilizes 4 limbs. Generalized blisters, erosions and crust throughout body, purulent secretion and erythema underneath crust. Lower limb extremities presents crusty lesions with no obvious drainage. Neurological: GCS: 11. No motor no sensitive deficits. Pupils are isocoric and reactive laboratory and microbiology Laboratory Tests 01/05/25 10:02 01/05/25 04:48 Test 01/05/25 04:48 Range/Units Serum Glucose 297 H 74-106 mg/dL Microbiology Date/Time Source Procedure Growth Status 01/03/25 11:40 Blood Blood Culture - Preliminary NO GROWTH AFTER 24 HOURS OF INCUBATION. Resulted 01/03/25 00:30 Nose MRSA Screen - Final Complete Labs and/or images reviewed: Labs reviewed by me, Image(s) reviewed by me Problem List/Assessment/Plan Problem List/Assessment/Plan Metabolic encephalopathy likely secondary to sepsis Sepsis due to exacerbated pemphigus foliaceous Cellulitis POA MRSA in wound, toxic epidermal necrolysis/kathy-Sung syndrome POA PE ruled out Bacteremia severe anemia secondary coagulopathy BONILLA due to VMN Severe hypernatremia Acute respiratory failure secondary to bilateral pleural effusion Hypertension Dyslipidemia Diabetes Coronary artery disease status post PCI with stent placement Chronic microcytic anemia Plan: Daptomycin IV Merrem and IV D5 water 125 mL/hour Free water 200ml q6hrs Preliminary blood culture growing Gram-positive cocci Wound culture growing MRSA, Pseudomonas Pending transferred to [facility]/[place] Transfuse 1 unit of RBC pack Continue insulin sliding scale moderate q.6 hours Solu-Medrol 500 mg IV daily for three more days Placed NG tube continue tube feeding with glucerna Nephrology following We had a lengthy discussion with patient's about goals of care, further discussion will be done with patient's son. Goals of care were discussed for 36 minutes. FULL CODE. Time spent also after studies: 88 minutes Case was discussed with Dr. Bustamante Plan discussed with: Spouse, Other (RN) My Orders My Orders Orders - KISHAN VANESSA RESIDENT Procedure Category Date Status Time Daptomycin (Cubicin) PHA 01/04/25 In Process 14:00 Morphine Sulfate PHA 01/04/25 In Process Injection 18:00 Meropenem 1gm Ivpb PHA 01/04/25 In Process (Merrem 1gm/ Ns) 21:00 Clinimix Per Pharmacy PHA 01/04/25 In Process 20:15 Amino Acid Infusion PHA 01/04/25 In Process In D10w (Clinimix 4. 22:00 Glucose Blood PHA 01/05/25 In Process (Accu-Chek Comfort 00:00 Insulin R (Human) PHA 01/05/25 In Process (Insulin R) 00:00 Dextrose 50% Syringe PHA 01/04/25 In Process 20:45 Clinimix Per Pharmacy RADHA 01/04/25 In Process 22:00 Nutritional PHA 01/05/25 In Process Supplements (Glucerna 08:00 D5w 5% (Dextrose 5%) PHA 01/05/25 Logged 11:15 Dietary Evaluation Review Recommendations by RD: Protein Supplementation Comments: 1) If patient remains NPO > 7 days, consider EN/TPN to meet at least 75% estimated daily needs 2) Initiate Pro-Stat @ 30 mL qd 3) Initiate Tj @ 1 pk qd 4) Initiate multivitamin @ 1 tb qd 5) Advance to 60g CCHO cardiac diet when medically feasible, pending AUTOMATIC SPINNING LATHE SETTER approval 6) Continue to monitor I&O, labs, and skin integrity Expected Outcomes/Goals: 1) patient to receive nutrition support within 7 days of NPO status 2) labs and wound to improve 3) diet to advance 4) follow-up in 2-3 days Date of Service: Jan 05, 2025 Billing Provider: KEN BUSTAMANTE MD Common Visit Codes: [id number] CARE 30-74 MIN, [id number] CARE-EACH +30MIN KISHAN VANESSA Jan 05, 2025 11:11 KEN BUSTAMANTE MD January 06, 2025 12:32
[2025-01-05] MEDS: D5W 5% 1,000 ML IV SCH ×2 (11:53→15:22)
[2025-01-05 12:07] LABS: Protein, Urine 137.4 mg/dL (1-14)
[2025-01-05 12:09] LABS: Creatinine, Urine 109.87 mg/dL (30.0-125.0)
[2025-01-05 12:10] LABS: Urine Bacteria MOD /hpf (None Seen); Urine Blood 2+ /uL (Negative); Urine Clarity Turbid (Clear); Urine Color Yellow (Yellow); Urine Hyaline Cast FEW /lpf (0 - 2); Urine Mucus FEW (None Seen); Urine Protein, UAD 1+ (Negative); Urine Specific Gravity 1.028 (1.001-1.035); Urine Sperm PRESENT /hpf (None Seen); Urine Squamous Epithelial Cell FEW /hpf (<5); Urine Urobilinogen 2 mg/dL (Negative); Urine WBC 12 /HPF (0-3); Urine pH 5.5 (5.0-9.0)
[2025-01-05] MEDS: FUROSEMIDE 100 MG/10ML VIAL IV SCH (14:18)
--- NOTE | 2025-01-05 15:03 | DVHPN2 ---
Progress Note Date Seen: Jan 05, 2025 Resident Creating Document: TAURUS BRITTON RESIDENT Has the PT tested + for MRSA If YES, has PT been informed?: Yes Medical Necessity Reason Pt with a Central, PICC or Fol: No The following are medically ne: Arnold Catheter Reason for arnold catheter: Strict I&O Subjective Review of Systems Patient seen and examined at bedside patient is being managed for acute hypernatremia for which the plan is pursue sodium correction continuing with Lasix 40 mg daily, having consideration the urine output is low. Patient is pending for transfer D5W 150 cc/hour 200 mL dose of free water was ordered. Objective vital signs Vital Sign Date Time Temp Pulse Resp B/P (MAP) Pulse Ox O2 Delivery O2 Flow Rate FiO2 01/05/25 13:00 98.6 79 8 103/51 (68) 100 209.5 01/05/25 12:00 Room Air* 0 21 Total Intake and Output 01/04/25 01/04/25 01/05/25 15:00 23:00 07:00 Intake Total 1600 ml 1700 ml 1578 ml Output Total 200 ml 220 ml Balance 1600 ml 1500 ml 1358 ml medications Current Medications Medications Dose Ordered Sig/Dominique Route Start Time Stop Time Status Last Admin Dose Admin Docusate Sodium 100 mg BIDPRN PRN PO 01/01/25 03:30 Acetaminophen 650 mg Q6HP PRN PO 01/01/25 03:30 Ondansetron HCl 4 mg Q4HP PRN IV 01/01/25 03:30 Pantoprazole Sodium 40 mg DAILY IV 01/02/25 10:00 01/05/25 09:46 40 MG Artificial Tears 1 drop Q2HP PRN EACHEYE 01/03/25 11:30 Mycophenolate Mofetil 500 mg BID PO 01/03/25 22:00 Methylprednisolone Sodium Succinate 500 mg/Sodium Chloride 100 ml @ 200 mls/hr DAILY IV 01/04/25 10:00 01/06/25 10:00 01/05/25 11:49 200 MLS/HR Daptomycin 550 mg/ Sodium Chloride 50 ml @ 100 mls/hr Q48H IV 01/04/25 14:00 01/04/25 17:48 100 MLS/HR Morphine Sulfate 2 mg Q3HPRN PRN IV 01/04/25 18:00 01/05/25 06:07 2 MG Meropenem 50 ml @ 17 mls/hr Q12H IV 01/04/25 21:00 01/05/25 09:56 17 MLS/HR Amino Acids 0 ml @ 0 mls/hr PER PHARMACY IV 01/04/25 20:15 Amino Acids/ Electrolytes/ Dextrose 1,000 ml @ 41 mls/hr DAILY@2200 IV 01/04/25 22:00 01/04/25 23:25 41 MLS/HR Diagnostic Test (Pha) 1 strip Q6HR 01/05/25 00:00 01/05/25 11:34 1 STRIP Insulin Human Regular FOLLOW SLIDING SCALE Q6HR SC 01/05/25 00:00 01/05/25 11:49 8 UNITS Dextrose 50 ml UD IV 01/04/25 20:45 Enteral Nutritional Formula 1,000 ml 60ML/HR GT 01/05/25 08:00 01/05/25 08:09 1,000 ML Purified Water 200 ml Q4HR GT 01/05/25 18:00 Dextrose 1,000 ml @ 150 mls/hr Q6H40M IV 01/05/25 15:00 UNV Examination: GENERAL:Abnormal, HEENT:Normal, NECK:Normal, LUNGS:Normal, CVS:Normal, ABDOMEN:Normal, MSK:Abnormal, SKIN:Abnormal, NEURO:Abnormal, :Normal laboratory and microbiology Laboratory Tests 01/05/25 10:02 01/05/25 04:48 Test 01/05/25 04:48 Range/Units Serum Glucose 297 H 74-106 mg/dL Microbiology Date/Time Source Procedure Growth Status 01/03/25 11:40 Blood Blood Culture - Preliminary NO GROWTH AFTER 48 HOURS OF INCUBATION. 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 Continue Lasix 40 mg daily Monitor urine output Free water 200 mL q.4 hours Continue antibiotics per hospitalist. Case discussed with code status: full code Addendum Patient seen and examined, plan discussed with resident. Agree with above, we will follow closely [facility]LOC transfer pending Plan discussed with: Spouse Dietary Evaluation Review Recommendations by RD: Protein Supplementation Comments: 1) If patient remains NPO > 7 days, consider EN/TPN to meet at least 75% estimated daily needs 2) Initiate Pro-Stat @ 30 mL qd 3) Initiate Tj @ 1 pk qd 4) Initiate multivitamin @ 1 tb qd 5) Advance to 60g CCHO cardiac diet when medically feasible, pending PROGRESS WORKER approval 6) Continue to monitor I&O, labs, and skin integrity Expected Outcomes/Goals: 1) patient to receive nutrition support within 7 days of NPO status 2) labs and wound to improve 3) diet to advance 4) follow-up in 2-3 days TAURUS BRITTON RESIDENT Jan 05, 2025 15:02 BOBBI WILLIAMSON MD Jan 05, 2025 17:15
[2025-01-05] MEDS: FUROSEMIDE 40 MG/4 ML VIAL IV ONE (15:22)
[2025-01-05] MEDS ORDERED: FREE WATER GT SCH (18:00)
[2025-01-05] MEDS: FREE WATER GT SCH (18:21)
[2025-01-06] VITALS (31 sets, daily range): BP systolic 83–158; BP diastolic 33–75; PULSE 58–124; RESP 7–20; TEMP 91.6–99; O2SAT 99–100
[2025-01-06 05:19] LABS: Basophils # (auto) 0 10 ^3/uL (0-0.2); Eosinophils # (auto) 0 10 ^3/uL (0-0.8); Hemoglobin 8.4 g/dL (13.5-17.5); Monocytes # (auto) 0.3 10 ^3/uL (0-1.3); Neutrophils # (auto) 8.3 10 ^3/uL (1.6-8.6); Platelet Count (auto) 161 10^3/uL (140-450)
[2025-01-06 05:21] LABS: Basophils % (auto) 0.1 % (0.0-2.0); Hematocrit 25.6 % (41.0-53.0); Lymphocytes # (auto) 0.9 10 ^3/uL (0.4-5.4); Lymphocytes % (auto) 9.6 % (10.0-50.0); Mean Corpuscular Hemoglobin 28.8 pg (28.0-32.0); Mean Corpuscular Hgb Conc. 32.8 g/dL (32.0-36.0); Mean Corpuscular Volume 88.1 fL (80.0-100.0); Monocytes % (auto) 3.2 % (0.0-12.0); Neutrophils % (auto) 87.1 % (37.0-80.0); Nucleated Red Blood Cells % 0.4 %; Red Blood Cells 2.91 10^6/uL (4.5-5.90); White Blood Cell 9.6 10^3/uL (4.4-10.8)
[2025-01-06 05:39] LABS: Alanine Aminotransferase 26 U/L (7-40); Alkaline Phosphatase 88 U/L (46-116); Anion Gap 10 (5-15); Aspartate Aminotransferase 19 U/L (13-40); Bilirubin, Total 0.9 mg/dL (0.2-1.0); Phosphorus 4.3 mg/dL (2.4-5.1)
[2025-01-06 05:43] LABS: Blood Urea Nitrogen 43 mg/dL (9-23); Carbon Dioxide 19 mmol/L (20-31); Chloride 125 mmol/L (98-107); Glucose 274 mg/dL (74-106); Potassium 3.5 mmol/L (3.5-5.1); Sodium 154 mmol/L (136-145); Total Protein 3.7 g/dL (5.7-8.2)
--- NOTE | 2025-01-06 10:22 | DVHPNRES ---
Progress Note Date Seen: January 06, 2025 Resident Creating Document: KISHAN VANESSA RESIDENT Has the PT tested + for MRSA If YES, has PT been informed?: Yes Medical Necessity Reason Pt with a Central, PICC or Fol: No The following are medically ne: Arnold Catheter Reason for arnold catheter: Strict I&O Subjective Review of Systems Patient was seen and examined at bedside. On room air. BP stable. GCS: 12. Severe pain on repositioning due to skin rash. patient is verbally responding to commands Patient will be transferred to higher level of care/[place], will continue medications as prescribed in spreadsheet. Given patient's current critical state and poor prognosis patient will be transferred to higher level of care, preferably to a burn unit. verbalized understanding and agree with the DC plan, we spent over 30 minutes explaining the plan. Objective vital signs Vital Sign Date Time Temp Pulse Resp B/P (MAP) Pulse Ox O2 Delivery O2 Flow Rate FiO2 01/06/25 08:00 98.4 94 131/47 (75) 100 209.1 01/06/25 07:00 9 01/06/25 06:00 Room Air* 0 21 Total Intake and Output 01/05/25 01/05/25 01/06/25 15:00 23:00 07:00 Intake Total 778 ml 1858 ml 2834 ml Output Total 825 ml 700 ml Balance 778 ml 1033 ml 2134 ml medications Current Medications Medications Dose Ordered Sig/Dominique Route Start Time Stop Time Status Last Admin Dose Admin Docusate Sodium 100 mg BIDPRN PRN PO 01/01/25 03:30 Acetaminophen 650 mg Q6HP PRN PO 01/01/25 03:30 Ondansetron HCl 4 mg Q4HP PRN IV 01/01/25 03:30 Pantoprazole Sodium 40 mg DAILY IV 01/02/25 10:00 01/06/25 10:01 40 MG Artificial Tears 1 drop Q2HP PRN EACHEYE 01/03/25 11:30 Mycophenolate Mofetil 500 mg BID PO 01/03/25 22:00 Daptomycin 550 mg/ Sodium Chloride 50 ml @ 100 mls/hr Q48H IV 01/04/25 14:00 01/04/25 17:48 100 MLS/HR Morphine Sulfate 2 mg Q3HPRN PRN IV 01/04/25 18:00 01/05/25 06:07 2 MG Meropenem 50 ml @ 17 mls/hr Q12H IV 01/04/25 21:00 01/06/25 10:00 17 MLS/HR Enteral Nutritional Formula 1,000 ml 60ML/HR GT 01/05/25 08:00 01/05/25 08:09 1,000 ML Purified Water 200 ml Q4HR GT 01/05/25 18:00 01/06/25 10:01 200 ML Dextrose 1,000 ml @ 150 mls/hr Q6H40M IV 01/05/25 15:00 01/06/25 03:51 150 MLS/HR Examination General: Disoriented, GCS: 11, afebrile, mucosae are dry, scaly Cardiovascular: Normal S1 and S2, tachycardic. No murmurs, gallops or rubs Respiratory: Crackles on both lungs Abdomen: Soft, nontender, no organomegaly, normal bowel sounds MSK/skin: Mobilizes 4 limbs. Generalized blisters, erosions and crust throughout body, purulent secretion and erythema underneath crust. Lower limb extremities presents crusty lesions with no obvious drainage. Neurological: GCS: 11. No motor no sensitive deficits. Pupils are isocoric and reactive laboratory and microbiology Laboratory Tests 01/06/25 04:44 01/06/25 04:40 Test 01/06/25 04:40 Range/Units Serum Glucose 274 H 74-106 mg/dL Microbiology Date/Time Source Procedure Growth Status 01/03/25 11:40 Blood Blood Culture - Preliminary NO GROWTH AFTER 48 HOURS OF INCUBATION. 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 Cellulitis POA MRSA in wound, toxic epidermal necrolysis/kathy-Sung syndrome POA PE ruled out Bacteremia severe anemia secondary coagulopathy BONILLA due to VMN Severe hypernatremia Acute respiratory failure secondary to bilateral pleural effusion Hypertension Dyslipidemia Diabetes Coronary artery disease status post PCI with stent placement Chronic microcytic anemia Plan: Daptomycin IV Merrem and IV D5 water 100 mL/hour Free water 200ml q6hrs Preliminary blood culture growing Gram-positive cocci Wound culture growing MRSA, Pseudomonas Continue insulin sliding scale moderate q.6 hours Solu-Medrol 500 mg IV daily for three more days Placed NG tube continue tube feeding with glucerna Nephrology following Allopurinol 50mg qd We had a lengthy discussion with patient's about goals of care, further discussion will be done with patient's son. Pending transfer to higher level of care/[place], have been discussing cases with different hospital, patient got accepted in a hospital in [place] Goals of care were discussed for 36 minutes. FULL CODE. Time spent also after studies: 82 minutes Case was discussed with Dr. Bustamante Plan discussed with: Patient, Spouse, Other (RN) My Orders My Orders Orders - KISHAN VANESSA Procedure Category Date Status Time Clinimix Per Pharmacy RADHA 01/05/25 In Process 22:00 Sodium LAB 01/06/25 Logged 11:00 Dietary Evaluation Review Recommendations by RD: Protein Supplementation Comments: 1) If patient remains NPO > 7 days, consider EN/TPN to meet at least 75% estimated daily needs 2) Initiate Pro-Stat @ 30 mL qd 3) Initiate Tj @ 1 pk qd 4) Initiate multivitamin @ 1 tb qd 5) Advance to 60g CCHO cardiac diet when medically feasible, pending DIRECTOR ONLINE MARKETING approval 6) Continue to monitor I&O, labs, and skin integrity Expected Outcomes/Goals: 1) patient to receive nutrition support within 7 days of NPO status 2) labs and wound to improve 3) diet to advance 4) follow-up in 2-3 days Date of Service: January 06, 2025 Billing Provider: KEN BUSTAMANTE MD Common Visit Codes: [id number] CARE 30-74 MIN, [id number] CARE-EACH +30MIN KISHAN VANESSA January 06, 2025 10:22 KEN BUSTAMANTE MD January 09, 2025 12:08
[2025-01-06] MEDS: D5W 5% 1,000 ML IV SCH (12:51)
[2025-01-06] MEDS ORDERED: Vital AF 1.2 Cal 1 liter bottle GT SCH (13:30)
[2025-01-06] MEDS: ALLOPURINOL 100 MG TAB NG ONE (13:37)
[2025-01-06] MEDS ORDERED: Pivot 1.5 Cal One Liter GT SCH ×2 (14:30→15:00)
--- NOTE | 2025-01-06 16:08 | DVHPN2 ---
Progress Note Date Seen: January 06, 2025 Resident Creating Document: TAURUS BRITTON RESIDENT Has the PT tested + for MRSA If YES, has PT been informed?: Yes Medical Necessity Reason Pt with a Central, PICC or Fol: No The following are medically ne: Arnold Catheter Reason for arnold catheter: Strict I&O Subjective Review of Systems Patient is seen and examined at bedside, patient is more oriented and talking, we will continue dextrose on 100 cc/hour a monitoring urine output, daily weights and electrolytes. Patient is pending for transfer Patient reports: No new complaints Objective vital signs Vital Sign Date Time Temp Pulse Resp B/P (MAP) Pulse Ox O2 Delivery O2 Flow Rate FiO2 01/06/25 15:00 97.9 69 15 136/52 (80) 100 208.2 01/06/25 12:00 Room Air* 0 21 Total Intake and Output 01/05/25 01/05/25 01/06/25 15:00 23:00 07:00 Intake Total 778 ml 1858 ml 2834 ml Output Total 825 ml 700 ml Balance 778 ml 1033 ml 2134 ml medications Current Medications Medications Dose Ordered Sig/Dominique Route Start Time Stop Time Status Last Admin Dose Admin Docusate Sodium 100 mg BIDPRN PRN PO 01/01/25 03:30 Acetaminophen 650 mg Q6HP PRN PO 01/01/25 03:30 Ondansetron HCl 4 mg Q4HP PRN IV 01/01/25 03:30 Pantoprazole Sodium 40 mg DAILY IV 01/02/25 10:00 01/06/25 10:01 40 MG Artificial Tears 1 drop Q2HP PRN EACHEYE 01/03/25 11:30 Mycophenolate Mofetil 500 mg BID PO 01/03/25 22:00 Daptomycin 550 mg/ Sodium Chloride 50 ml @ 100 mls/hr Q48H IV 01/04/25 14:00 01/06/25 13:31 100 MLS/HR Morphine Sulfate 2 mg Q3HPRN PRN IV 01/04/25 18:00 01/06/25 11:43 2 MG Meropenem 50 ml @ 17 mls/hr Q12H IV 01/04/25 21:00 01/06/25 10:00 17 MLS/HR Dextrose 1,000 ml @ 100 mls/hr Q10H IV 01/06/25 12:00 01/06/25 12:51 100 MLS/HR Purified Water 200 ml Q6HR GT 01/06/25 18:00 Allopurinol 50 mg DAILY NG 01/07/25 10:00 Enteral Nutritional Formula 1,000 ml 55ML/HR GT 01/06/25 15:00 Examination: GENERAL:Abnormal, HEENT:Normal, NECK:Normal, LUNGS:Normal, CVS:Normal, ABDOMEN:Normal, MSK:Normal, SKIN:Abnormal, :Normal laboratory and microbiology Laboratory Tests 01/06/25 11:25 01/06/25 04:40 Test 01/06/25 04:40 Range/Units Serum Glucose 274 H 74-106 mg/dL Microbiology Date/Time Source Procedure Growth Status 01/05/25 09:44 Voided Urine Urine Culture - Preliminary Resulted 01/03/25 11:40 Blood Blood Culture - Preliminary NO GROWTH AFTER 72 HOURS OF INCUBATION. 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 Continue Lasix 40 mg daily Monitor urine output Free water 200 mL q.4 hours Continue antibiotics per hospitalist. Case discussed with code status: full code Addendum Patient seen and examined, plan discussed with resident. Agree with above, we will follow closely Plan discussed with: Patient, Spouse Dietary Evaluation Review Recommendations by RD: Protein Supplementation Comments: 1) If patient remains NPO > 7 days, consider EN/TPN to meet at least 75% estimated daily needs 2) Initiate Pro-Stat @ 30 mL qd 3) Initiate Tj @ 1 pk qd 4) Initiate multivitamin @ 1 tb qd 5) Advance to 60g CCHO cardiac diet when medically feasible, pending LINOLEUM TILE LAYER approval 6) Continue to monitor I&O, labs, and skin integrity Expected Outcomes/Goals: 1) patient to receive nutrition support within 7 days of NPO status 2) labs and wound to improve 3) diet to advance 4) follow-up in 2-3 days TAURUS BRITTON January 06, 2025 16:08 BOBBI WILLIAMSON MD January 06, 2025 19:30
[2025-01-06] MEDS: FUROSEMIDE 40 MG/4 ML VIAL IV ONE (16:43)
[2025-01-06] MEDS: FREE WATER GT SCH (18:15)
[2025-01-07] VITALS: BP 90/38; PULSE 65; PULSE 83; RESP 17; RESP 8; TEMP 99; O2SAT 100
[2025-01-07] MEDS: InsuLIN REG 1unit/0.01ml Soln (100units/ml) IV ONE (00:28)
[2025-01-07 00:30] VITALS: PULSE 78; RESP 9; TEMP 98.6; O2SAT 100
[2025-01-07] MEDS ORDERED: ALLOPURINOL 100 MG TAB NG SCH (10:00)
== END 2025-01-07 00:49 | disposition short-term general hospital (02) | DRG 871 ==
LOC: EDUNIT# 22:29 → ER 22:29 → EDBD 22:29 → OVERFLOW 01-01 03:30 → TELE-EAST 01-01 11:10 → DOU IN ICU 01-02 23:20
PROVIDERS: ADMIT Internal Medicine; ATTEND Internal Medicine
PROC: 30233N1 Transfusion of Nonautologous Red Blood Cells into Peripheral Vein, Percutaneous Approach (ICD-10-PCS; principal; 2025-01-04)
DX: A41.9 Sepsis, unspecified organism (principal); G93.41 Metabolic encephalopathy; J96.00 Acute respiratory failure, unspecified whether with hypoxia or hypercapnia; N17.0 Acute kidney failure with tubular necrosis; J90 Pleural effusion, not elsewhere classified; L10.2 Pemphigus foliaceous; L51.3 Stevens-Johnson syndrome-toxic epidermal necrolysis overlap syndrome; E87.0 Hyperosmolality and hypernatremia; D68.9 Coagulation defect, unspecified; L03.818 Cellulitis of other sites; E78.5 Hyperlipidemia, unspecified; E11.22 Type 2 diabetes mellitus with diabetic chronic kidney disease; Z20.822 Contact with and (suspected) exposure to COVID-19; I25.10 Atherosclerotic heart disease of native coronary artery without angina pectoris; D50.9 Iron deficiency anemia, unspecified; B95.7 Other staphylococcus as the cause of diseases classified elsewhere; E86.0 Dehydration; E83.51 Hypocalcemia; I12.9 Hypertensive chronic kidney disease with stage 1 through stage 4 chronic kidney disease, or unspecified chronic kidney disease; E11.65 Type 2 diabetes mellitus with hyperglycemia; Z74.01 Bed confinement status; Z88.8 Allergy status to other drugs, medicaments and biological substances; Z95.5 Presence of coronary angioplasty implant and graft; Z91.199 Patient's noncompliance with other medical treatment and regimen due to unspecified reason; Z82.49 Family history of ischemic heart disease and other diseases of the circulatory system; Z80.8 Family history of malignant neoplasm of other organs or systems; Z79.2 Long term (current) use of antibiotics; Z79.899 Other long term (current) drug therapy; Z87.442 Personal history of urinary calculi
CPT/HCPCS: 36415; 36600; 70450; 71045; 71275; 80048; 80053; 80061; 80202; 81001; 82306; 82550; 82565; 82570; 82607; 82805; 82962; 83036; 83605; 83735; 83880; 83930; 83935; 84100; 84156; 84295; 84300; 84443; 84484; 84550; 85014; 85018; 85025; 85379; 85610; 85730; 86850; 86900; 86901; 86920; 87040; 87077; 87081; 87086; 87186; 87205; 87426; 87804; 93306; 96361; 96374; 96375; 99291; G0378; J2185; J2405; J2470; J2543; J7517